=== PATIENT | female | born 1995 | race Caucasian/White ===

== ENCOUNTER 2024-09-26 14:06 | Emergency (ER) | payer OTHER, SELFPAY ==
--- NOTE | 2024-09-26 14:18 | ED_ITS ---
Discharge Plan Disposition Patient Disposition: Home, Self-Care Prescriptions Prescriptions: New vilazodone [Viibryd] 40 mg tablet 40 mg PO DAILY Qty: 20 0RF Rx Instructions: must administer with a meal/food No Action minocycline 100 MG tablet 100 mg PO BID Qty: 20 0RF Referrals Follow up/Referrals: Provider,Referral, [Primary Care Provider, Medical] - See instructions Activity Restrictions/Add. Instructions Additional Instructions/Restrictions: You are seen in the emergency room today with complaints of anxiety and requesting a medication refill. Your medication has been called into [facility]. Please follow-up with your mental health provider which you have scheduled in 2 weeks. Please return to the emergency room should your condition worsen. Clinical Impressions Clinical Impression: Acute anxiety Instructions Patient Instructions: Anxiety Disorders Print Language Print Language: [place] Timore[place] Discharge ED Provider: Mo Castle General Adult HPI <Abiola Carmona APRN - Last Filed: 09/26/24 15:12> General Chief complaint: Psychiatric Symptoms Stated complaint: mental health/medication Time Seen by Provider: 09/26/24 14:11 History of Present Illness HPI narrative: Lynda Tejeda is a 29-year-old female past medical history difficult for depression/mental health issues who presents emergency room today with complaints of anxiety and inquiring about a medication refill. Apparently Ms. Tejeda had seen the same mental health provider for the last 3 years, was prescribed Klonopin and Viibryd, has been on Viibryd 40 mg for 3 years now. Reports that her physician resigned, and a new physician that recently started. States that they pulled her off of her Klonopin and now they will not refill her Viibryd. Patient tells me that she has been very anxious and upset about this over the last couple of weeks. 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 Reported that she last used methamphetamine 2 weeks ago. Patient has an appointment with a new mental health provider in [facility] in 2 weeks, she does not have enough Viibryd to get through to her appointment and is in 2 weeks. Does report that she has been having some anxiety with some mild tachycardia, heart rate in the 100s which she has been keeping track of at home. Denies any chest pain or shortness of breath. No diaphoresis, nausea, vomiting. No prior cardiac history. No family history of sudden cardiac . Denies tobacco use, alcohol use, no recent illicit drug use since using methamphetamine 2 weeks ago. No active or current complaints at this time. Please note that the above description of symptoms, and this electronic medical record under categorization of recalled from ER triage doctor by RN are reflective of an initial nursing assessment, however, is not reflective of my full history and physical exam that was personally taken and clarified. Consequentially, this proceeding description of symptoms, which may include the patient's cauterized chief complaint in the EMR, do not reflect my personal clinical impression, and the ultimate description of the history of present illness stated complaints should be deferred to this section of this note. Unless stated otherwise were congruent with the section of the note, additional signs, symptoms, or incongruence can be interpreted as in or accurate with my clinical impression. Related Data Previous Rx's ?Medication ?Instructions ?Recorded minocycline 100 mg tablet 100 mg PO BID #20 tabs 03/18 vilazodone 40 mg tablet (Viibryd) 40 mg PO DAILY #20 t abs 09/26/24 Allergies Allergy/AdvReac Type Severity Reaction Status Date / Time No Known Allergies Allergy Verified 08/23/18 11:09 [facility] <Abiola Carmona, MARKETING MANAGER - Last Filed: 09/26/24 15:12> [facility] Disclaimer: The information contained in this section may have been updated after the patient was seen, as this information can be updated by other users. Social History Smoking Status: Never smoker alcohol intake: never current occupational status: other Travel in the last 8 weeks?: None Have you lived/traveled outside US in past 30 days?: No Contact w/someone who lives/traveled outside US past 30 days?: No Exposure to someone with infectious disease in past 14 days?: No Do you have a fever (greater than 100.4 F or 38 C)?: No Have you tested positive for COVID-19?: No Exposed to someone with COVID-19 in past 14 days?: No Do you have a sore throat?: No Do you have a cough?: No Do you have any weakness?: No Do you have any diarrhea?: No Are you experiencing any unusual bleeding?: No Do you have any muscle aches/pain?: No Do you have any abdominal pain?: No Are you experiencing loss of taste or smell?: No Other Medical History Have you received the Flu Vaccine for this season: No Have you received the Pneumonia Vaccine: No <Abiola Carmona MARKETING MANAGER - Last Filed: 09/26/24 15:12> ROS Obtained: Yes Systems reviewed as appropriate & no additional complaints except as documented Physical Exam <Abiola Carmona MARKETING MANAGER - Last Filed: 09/26/24 15:12> General General appearance: alert and in no apparent distress Head Head exam: atraumatic and normocephalic Eye Eye exam: Present PERRL and EOMI Chest Chest inspection: Present symmetric chest wall rise Respiratory Respiratory exam: Present normal lung sounds bilaterally Cardiovascular Cardiovascular exam: Present regular rate and normal rhythm Abdominal Exam Abdominal exam: Present soft and normal bowel sounds; Absent tenderness Extremities Exam Extremities exam: Present full ROM Neurological Exam Neurological exam: Present alert and oriented X3 Skin Skin exam: Present warm, dry and intact Medical Decision Making <Abiola Carmona, MARKETING MANAGER - Last Filed: 09/26/24 15:12> Medical Records Screening: Per USPSTF and CDC recommendations, given the prevalence of disease in our region, it is our hospital?s policy to screen for HIV and viral Hepatitis for all patients aged 18 and over and those with ongoing risk factors. Damien Inquiry Pt receiving controlled substance: No Vital Signs: 09/26/24 14:19 09/26/24 15:00 09/26/24 15:17 Temperature 98.1 F 98.1 F Temperature Source Oral Pulse Rate 96 H 94 H Pulse Rate [Left] 104 H Respiratory Rate 16 16 Blood Pressure 127/88 127/88 Blood Pressure [Right Arm] 152/99 H Blood Pressure Mean [Right Arm] 116 Blood Pressure Source [Right Arm] Automatic Cuff Blood Pressure Position [Right Arm] Sitting 02 Sat by Pulse Oximetry 100 100 Oxygen Delivery Method Room Air Room Air Orders (Tests/Meds): ORDERS Category Date Time Status HIV Combo Stat Lab 09/26/24 15:03 Ordered Hepatitis C Ab Qual. W/ RFX Stat Lab 09/26/24 15:03 Ordered ECG Request Stat Y 09/26/24 14:19 Ordered Medical Decision Narrative: In summary patient is an 29-year-old female who presents emergency department for evaluation of refill on her medication Viibryd. Patient recently had to change mental health providers and new mental health provider would not refill her Viibryd. Patient states that she is very upset since she has changed her medication regimen, has stopped her Klonopin, patient reports last time she took Klonopin was a little over a week ago. Requesting a refill on her Viibryd for the next 2 weeks so that she can make it to her new mental health provider appointment and help her continue taking her Viibryd.. Patient is hemodynamically stable upon arrival, afebrile. Unremarkable nonfocal physical exam. Differential diagnosis includes anxiety, depression. Initial workup will be conducted with EKG, patient does report some mild tachycardia over the last couple of weeks with regards to increase in her anxiety about her medication changes. Patient denies any chest pain or shortness of breath.. Initial interventions include calming environment and reassurance. Initial workup reviewed by me EKG reviewed by ER physician, no ST elevation depression noted, normal sinus rhythm. Upon repeat evaluation patient calm down significantly and is going to meat pickler her prescriptions at the pharmacy.. Given this patient appropriate for discharge. I have called and a 2-week prescription for Viibryd at [facility]. Please return to the ER if your condition worsens. Keep your follow-up appointment with your provider in 2 weeks at [facility]. <Mo Castle MD - Last Filed: 09/26/24 15:23> Vital Signs: 09/26/24 14:19 09/26/24 15:00 09/26/24 15:17 Temperature 98.1 F 98.1 F Temperature Source Oral Pulse Rate 96 H 94 H Pulse Rate [Left] 104 H Respiratory Rate 16 16 Blood Pressure 127/88 127/88 Blood Pressure [Right Arm] 152/99 H Blood Pressure Mean [Right Arm] 116 Blood Pressure Source [Right Arm] Automatic Cuff Blood Pressure Position [Right Arm] Sitting 02 Sat by Pulse Oximetry 100 100 Oxygen Delivery Method Room Air Room Air Orders (Tests/Meds): ORDERS Category Date Time Status HIV Combo Stat Lab 09/26/24 15:03 Ordered Hepatitis C Ab Qual. W/ RFX Stat Lab 09/26/24 15:03 Ordered ECG Request Stat Y 09/26/24 14:19 Ordered ECG Data Tracing #1: Independently interpreted by me rate is 81, rhythm is regular, axis is normal, no significant ST elevation in anatomical contiguous leads, QTc 386 Medical Decision Narrative: In summary patient is an 29-year-old female who presents emergency department for evaluation of refill on her medication Viibryd. Patient recently had to change mental health providers and new mental health provider would not refill her Viibryd. Patient states that she is very upset since she has changed her medication regimen, has stopped her Klonopin, patient reports last time she took Klonopin was a little over a week ago. Requesting a refill on her Viibryd for the next 2 weeks so that she can make it to her new mental health provider appointment and help her continue taking her Viibryd.. Patient is hemodynamically stable upon arrival, afebrile. Unremarkable nonfocal physical exam. Differential diagnosis includes anxiety, depression. Initial workup will be conducted with EKG, patient does report some mild tachycardia over the last couple of weeks with regards to increase in her anxiety about her medication changes. Patient denies any chest pain or shortness of breath.. Initial interventions include calming environment and reassurance. Initial workup reviewed by me EKG reviewed by ER physician, no ST elevation dep ression noted, normal sinus rhythm. Upon repeat evaluation patient calm down significantly and is going to meat pickler her prescriptions at the pharmacy.. Given this patient appropriate for discharge. I have called and a 2-week prescription for Viibryd at [facility]. Please return to the ER if your condition worsens. Keep your follow-up appointment with your provider in 2 weeks at [facility]. I was consulted by the DREAD, and we discussed the complexity of the problems being addressed. I approved the treatment and management plan for this patient's care in the emergency department, thus performing a substantive portion of the medical decision making. Mo Castle MD Critical Care <Abiola Carmona, MARKETING MANAGER - Last Filed: 09/26/24 15:12> Critical Care Time Critical Care Time: No
[2024-09-26 14:19] VITALS: BP 152/99; PULSE 104; RESP 16; TEMP 36.7; O2SAT 100; BMI 20.2
[2024-09-26 15:00] VITALS: BP 127/88; PULSE 96; O2SAT 100
--- NOTE | 2024-09-26 15:00 | ECG_ITS ---
APPROVED REPORT Exam: Resting ECG HR:81 bpm ECG Measurements Heart Rate 81 AXES KS 173 P 66 QRSd 75 QRS 77 QT 349 T 61 QTc 386 Conclusion SINUS RHYTHM NORMAL ECG Electronically signed by : ARIAS LACEY, 09/28/2024 12:24:49
[2024-09-26 15:17] VITALS: BP 127/88; PULSE 94; RESP 16; TEMP 36.7; O2SAT 98
== END 2024-09-26 15:19 | disposition home or self-care (01) ==
PROVIDERS: Emergency Provider Emergency Medicine
DX: F41.9 Anxiety disorder, unspecified (principal)
CPT/HCPCS: 93005; 99281

== ENCOUNTER 2024-10-09 02:12 | Emergency (ER) | payer OTHER, SELFPAY ==
--- NOTE | 2024-10-09 02:05 | ECG_ITS ---
APPROVED REPORT Exam: Resting ECG HR:127 bpm ECG Measurements Heart Rate 127 AXES NH 128 P 79 QRSd 80 QRS 82 QT 335 T 50 QTc 410 Conclusion SINUS TACHYCARDIA NONSPECIFIC T-WAVE ABNORMALITY ABNORMAL RHYTHM ECG UNCONFIRMED REPORT Electronically signed by : CINTHIA MCCOLLUM, 10/10/2024 01:08:15
--- NOTE | 2024-10-09 02:18 | ED_ITS ---
Discharge Plan Disposition Patient Disposition: Home, Self-Care Prescriptions Prescriptions: No Action minocycline 100 MG tablet 100 mg PO BID Qty: 20 0RF vilazodone [Viibryd] 40 mg tablet 40 mg PO DAILY Qty: 20 0RF Rx Instructions: must administer with a meal/food Referrals Follow up/Referrals: Provider,Referral, [Primary Care Provider, Medical] - See instructions Activity Restrictions/Add. Instructions Additional Instructions/Restrictions: Please follow-up with your primary care provider. Please return to the emergency department if you develop any new or worsening symptoms or become concerned for your health. Clinical Impressions Clinical Impression: Acute anxiety, Facial numbness, Acute dyspnea Print Language Print Language: Welsh Discharge ED Provider: Giorgi Onofre Adult HPI General Chief complaint: Chest Pain Stated complaint: chest pain Time Seen by Provider: 10/09/24 02:18 History of Present Illness HPI narrative: 29-year-old female with history of meth use presents for multiple complaints. She reports last meth use was earlier today/yesterday. She reports that her face has been numb, she has spots showing up on her legs that are coming and going. She reports that she feels like her heart will not stop beating. Reports pains in her hands that come and go. Related Data Previous Rx's ?Medication ?Instructions ?Recorded minocycline 100 mg tablet 100 mg PO BID #20 tabs 03/18 vilazodone 40 mg tablet (Viibryd) 40 mg PO DAILY #20 t abs 09/26/24 Allergies Allergy/AdvReac Type Severity Reaction Status Date / Time No Known Allergies Allergy Verified 08/23/18 11:09 [facility] Disclaimer: The information contained in this section may have been updated after the patient was seen, as this information can be updated by other users. Social History Smoking Status: Unknown if ever smoked alcohol intake: never current occupational status: other Travel in the last 8 weeks?: None Other Medical History Have you received the Flu Vaccine for this season: No Have you received the Pneumonia Vaccine: No ROS Obtained: Yes All systems reviewed & no additional complaints except as documented Physical Exam General General appearance: alert, anxious and cachectic Head Head exam: atraumatic and normocephalic Eye Eye exam: Present normal appearance, PERRL and EOMI ENT ENT exam: Present normal oropharynx and normal external ear exam Neck Neck exam: Present normal inspection and full ROM Chest Chest inspection: Present normal inspection and symmetric chest wall rise; Absent tenderness Respiratory Respiratory exam: Present normal lung sounds bilaterally; Absent respiratory distress Cardiovascular Cardiovascular exam: Present normal rhythm and tachycardia Abdominal Exam Abdominal exam: Present soft; Absent distention, tenderness or guarding Extremities Exam Extremities exam: Present normal inspection; Absent edema or joint swelling Back Exam Back exam: Present normal inspection; Absent tenderness Neurological Exam Neurological exam: Present alert and oriented X3; Absent motor sensory deficit Psychiatric Psychiatric exam: Present normal affect and normal mood Skin Skin exam: Present warm, dry and normal color Lymphatic Lymphatic Findings: no adenopathy Medical Decision Making Medical Records Medical records reviewed: Yes I reviewed the patient's medical records. Screening: Per USPSTF and CDC recommendations, given the prevalence of disease in our region, it is our hospital?s policy to screen for HIV and viral Hepatitis for all patients aged 18 and over and those with ongoing risk factors. Damien Inquiry Pt receiving controlled substance: No Damien was queried for this patient: No Vital Signs: 10/09/24 02:30 10/09/24 02:33 10/09/24 02:37 Temperature 98.1 F Temperature Source Temporal Artery Scan Pulse Rate 109 H 128 H Pulse Rate [Right] 126 H Respiratory Rate 20 24 13 Blood Pressure 143/111 H 139/91 H Blood Pressure [Right Arm] 139/91 H Blood Pressure Mean [Right Arm] 107 02 Sat by Pulse Oximetry 100 100 97 Oxygen Delivery Method Room Air 10/09/24 03:00 Temperature Temperature Source Pulse Rate 116 H Pulse Rate [Right] Respiratory Rate 13 Blood Pressure 126/79 Blood Pressure [Right Arm] Blood Pressure Mean [Right Arm] 02 Sat by Pulse Oximetry 100 Oxygen Delivery Method Lab Data Lab results reviewed: Yes I reviewed the patient's lab results. Lab Results 10/09/24 02:15: WBC 10.8, RBC 4.34, Hgb 12.8, Hct 36.8 L, MCV 84.8, MCH 29.5, MCHC 34.8, RDW 13.6, Plt Count 431 H, MPV 9.5, Neut % (Auto) 70.4, Lymph % (Auto) 21.0, Mobile % (Auto) 7.8, Eos % (Auto) 0.0 L, Baso % (Auto) 0.5, Neut # (Auto) 7.6, Lymph # (Auto) 2.3, Mobile # (Auto) 0.8, Eos # (Auto) 0.0, Baso # (Auto) 0.1, D-Dimer 0.42, Sodium 136, Potassium 3.8, Chloride 100, Carbon Dioxide 20 L, Anion Gap 19.8 H, BUN 16, Creatinine 1.20 H, Estimated Creat Clear 60, Estimated GFR 53 L, Est GFR ( Amer) 64, Glucose 123 H, Calcium 10.3 H , Magnesium 1.8, Total Bilirubin 1.2, AST 26, ALT 17, Alkaline Phosphatase 103, Troponin I < 0.01, Total Protein 9.2 H, Albumin 5.3 H, Globulin 3.9 H, Albumin/Globulin Ratio 1.4 10/09/24 02:30: HCV Ab LISA w/Rflx PCR Qn Negative, HIV Ag/Ab Combo Qual Negative 10/09/24 02:15 10/09/24 02:15 Orders (Tests/Meds): ED MEDICATIONS Discontinued Medications Generic Name Dose Route Start Last Admin Trade Name Freq PRN Reason Stop Dose Admin Acetaminophen 1,000 mg 10/09/24 03:07 10/09/24 03:12 Acetaminophen 500mg Tab PO 10/09/24 03:08 1,000 mg ONCE ONE Administration Sodium Chloride 1,000 mls @ 999 mls/hr 10/09/24 02:30 10/09/24 02:38 Sod Chlor 0.9% 1000ml Bag IV 10/09/24 03:30 999 mls/hr .Q1H1M KRISTY Administration Ketorolac Tromethamine 30 mg 10/09/24 03:07 10/09/24 03:12 Ketorolac 30mg/Ml Vial IV 10/09/24 03:08 30 mg ONCE ONE Administration ORDERS Category Date Time Status CXR --portable [XR chest portable] Stat Exams 10/09/24 02:30 Completed CBC w/Auto Diff [Complete Blood Count Auto Diff] Stat Lab 10/09/24 02:15 Completed CMP [Comprehensive Metabolic Panel] Stat Lab 10/09/24 02:15 Completed D-Dimer Stat Lab 10/09/24 02:15 Completed HIV Combo Stat Lab 10/09/24 02:30 Completed Hepatitis C Ab Qual. W/ RFX Stat Lab 10/09/24 02:30 Completed Magnesium Stat Lab 10/09/24 02:15 Completed Troponin I Q3H Lab 10/09/24 02:15 Completed Troponin I Q3H Lab 10/09/24 05:45 Ordered ECG Data Tracing #1: I reviewed this ECG and interpreted as documented below: Sinus tachycardia rate of 127, no significant ST changes, no evidence of arrhythmia ECG initial impression date: 10/09/24 ECG initial impression time: 02:05 HEART Score History (anamnesis): Slightly suspicious ECG: Normal Age: <45 years Risk factors: No known risk factors Troponin: </= normal limit HEART Score: 0 Medical Decision Narrative: 29-year-old female with history of meth and marijuana abuse, used earlier today, presents for multiple complaints including facial numbness, palpitations, shortness of breath, visual disturbances (she is seeing black spots on her legs that are not there). History was obtained via interactive discussion with patient, family, chart review. On arrival, patient is afebrile, tachycardic, satting appropriately on room air, alert and oriented, moving all extremities spontaneously. Full physical exam performed and significant for thin appearing patient, poor dentition, no other significant physical exam abnormality Differential includes but is not limited to side effect of meth use, PE, electrolyte derangement, arrhythmia, pneumothorax, pneumonia,. Patient was given Tylenol, Toradol, fluid bolus for symptomatic management and correction of underlying abnormalities. Workup initiated including CBC CMP troponin D-dimer chest x-ray. Patient reports prior to ligation, does not require test.. On re-evaluation, patient anxious. Laboratory workup independently interpreted by me and significant for negative D-dimer, negative troponin, no significant leukocytosis.. Imaging independently interpreted by me and significant for clear lungs bilaterally without focal opacity. See radiology read for full review of final results. EKG independently interpreted by me and significant for sinus tachycardia. Repeat troponin was considered, but deemed unnecessary due to no significant concern for ACS.. Given patient history, exam and workup, patient's presentation most likely represents meth use with associated tachycardia and mild psychosis. Patient is not a threat to herself or others and has no significant emergent pathology on ER workup. She was discharged in stable condition with her significant other. Encouraged follow-up with PCP. Procedures Risk/Benefits of Procedure(s) Were Explained: Yes Critical Care Critical Care Time Critical Care Time: No
--- OUTSIDE RECORDS SUMMARY | 2024-10-09 02:18 | XMS_ITS | Clinical Summary ---
Author Organization [facility] Address [address] [place] [address] Phone Care Team Providers Care Radio Interference Expert Name Role Phone Zachary LIZARRAGA, Sabrina Primary Care Physician [ ] Conditions or Problems Problem Name Problem Code Onset Date Status Entry Date Provider Comment Standard Description Annotate CONTRACEPTIVE MGMT Z30.40 (ICD-10-CM ) 08/20 Active 08/20 Sabrina Sharma MD Encounter for surveillance of contraceptive s, unspecified DYSURIA 23297326 (SNOMED CT) 08/20 Active 08/20 Natali Washington MA Dysuria ROUTINE FOLLOW-UP [id number] (SNOMED CT) 07/25 Inactive 07/25 Georgette Mujica LPN visit Medications Medication Instructions Start Date Stop Date Generic Name [facility] Provider SPRINTEC 28 0.25-35 MG-MCG TABS Take 1 daily NORGESTIMATE-E TH ESTRADIOL [id number] Sabrina Sharma MD BACTRIM DS 800-160 MG TABS one po BID SULFAMETHOXAZO LE-TRIMETHOPRI M [id number] Sabrina Sharma MD Medications Administered No information available. Allergies, Adverse Reactions, Alerts Allergy Name Reaction Description Start Date Severity Statu s Provider PRILOSEC Critical Active Georgette Cross urrens MANAGER SOCIAL SERVICES CECLOR Critical Active Georgette C urrens MANAGER SOCIAL SERVICES AMOXIL Critical Active Georgette Cross urrens MANAGER SOCIAL SERVICES Results Date Name Value Unit Range Flag Description Office Visit: [facility]-/deliv ered 07/08/2012-[facility]- RM# 3 WET MOUNT Negative microbial wet smear GLUCOSE, URN negative Glucose [Mass/volume] in Urine by Test strip BILIRUBIN UR negative Bilirub in.total [Presence] in Urine by Test strip BLOOD UR DIP negative blood i n urine (hemoglobin) by dipstick NITRITE URN negative Nitrite [Presence] in Urine by Test strip WBC DIPSTK U negative Leukocy te esterase [Presence] in Urine by Test strip KETONES URN trace (5) Ketones [Mass/volume] in Urine by Test strip SPEC GR URIN 1.025 Specific gravity of Urine by Test strip PH URINE 6.5 pH of Urine by Test strip PROTEIN, URN 1+ protein, urine, semiquantitative (dipstick) UROBILINOGEN 0.2 Urobilin ogen [Presence] in Urine by Test strip HGB 15.0 g/dL Hemoglobin [Mass/volume] in Blood Lab Report: CHLAMYDIA/N. SLAVA ORRHOEAE DNA, SDA GC DNA PROBE NOT DETECTED NOT DETECT N Neisseria gonorrhoeae DNA [Presence] in Anorectal by JESSICA with probe detection Plan of Care Type Date Detail Pending order Pap Age age =< 2 0 (Out Order) Pending order [facility] (Out O rder) Pending order Hemoglobin 24640 Pending order Urine Dip Auto 8 1003 Pending order Slides - Smears 40652 Pending order Pap Age age =< 2 0 (Out Order) Pending Order exclud ed from report: Procedures Code Procedure Name Date Entry Date CPT-52816 Hemoglobin 63186 CPT-09691 Urine Dip Auto 35205 CPT-46560 Slides - Smears 30650 08/20 CPT-72949 [facility] (Out Order) 08/20 90205 [facility] Test # Pap Age age =< 20 (Out Order) 08/20 Vital Signs Date Name Value Unit Description BP Diastolic 99 mm[Hg] blood pressu re, diastolic BP Systolic 134 mm[Hg] blood pressur e, systolic Heart Rate 93 /min pulse rate Weight Measured 144.7 [lb_av] weight E& M Weight Measured 144.7 [lb_av] weight E& M Weight Measured 65.77 kg weight in kilograms E&M Immunizations No information available. Advance Directives No information available.
--- OUTSIDE RECORDS SUMMARY | 2024-10-09 02:18 | XMS_ITS | Clinical Summary ---
Author Organization Healthcare Address [address] [place] [address] Care Team Providers Care Plant Tech Name Role Phone Unavailable Primary Care Provider Unavailabl e Family History Medical History Relation Name Comments COPD Brother 1 Diabetes type I Brother 2 Asthma Father COPD Father Emphysema Father Esophageal cancer Maternal Grandfather Anemia Mother JENNIFER disease Mother Diabetes type II Paternal Grandmother Relation Name Status Comments Brother 1 Brother 2 Father Maternal Grandfather Mother Paternal Grandmother Social History Tobacco Use Types Packs/Day Years Used Date Smoking Tobacco: Never Alcohol Use Standard Drinks/Week Comments No 0 (1 standard drink = 0.6 oz pur e alcohol) Comments Unknown Sex and Gender Information Value Date Recorded Sex Assigned at Female 03/31/2021 4:40 AM EST Legal Sex Female 6:50 PM EDT Gender Identity Female 03/31/2021 4:40 AM EST Sexual Orientation Straight 03/31/2021 4: 40 AM EST Last Filed Vital Signs Vital Sign Reading Time Taken Comments Blood Pressure - - Pulse - - Temperature - - Respiratory Rate - - Oxygen Saturation - - Inhaled Oxygen Concentration - - Weight 71.3 kg (157 lb 3 oz) 12/29/2014 10:45 AM EDT Height 165.1 cm (5' 5 ) 12/29/2014 10:45 AM EDT Body Mass Index 26.16 12/29/2014 10:45 AM EDT Plan of Treatment Not on file
--- OUTSIDE RECORDS SUMMARY | 2024-10-09 02:18 | XMS_ITS | Clinical Summary ---
Author Organization [facility] Address [address] [facility] [place] [address] Phone Care Team Providers Care Review Consultant Name Role Phone Unavailable Primary Care Provider Unavailabl e Allergies Active Allergy Reactions Criticality Noted Date Comments Amoxicillin Rash 07/11/2012 Cefaclor Hives 07/11/2012 Omeprazole Magnesium Other (See Comments) 07/11 Numbness, dizziness Medications montelukast (SINGULAIR) 10 mg tablet Take by mouth every evening. Active ibuprofen (ADVIL;MOTRIN) 800 mg Take 800 mg by mouth 3 times daily. Active FERROUS SULFATE ORAL Take 325 mg by mouth 2 times daily. Active docusate sodium (COLACE) 100 mg capsule Take by mouth 2 times daily. Active Active Problems No known active problems Resolved Problems Problem Noted Date Diagnosed Date Resolved Date Endometritis following delivery 07/11/2012 07/12/2012 Social History Tobacco Use Types Packs/Day Years Used Date Smoking Tobacco: Never Alcohol Use Standard Drinks/Week Comments No 0 (1 standard drink = 0.6 oz pur e alcohol) Sexually Active Control Partners Comments Not Currently Comments No Sex and Gender Information Value Date Recorded Sex Assigned at Not on file Legal Sex Female 5:11 AM EDT Gender Identity Not on file Sexual Orientation Not on file Obstetrics History Last Filed Vital Signs Vital Sign Reading Time Taken Comments Blood Pressure 119/69 07/12/2012 7:14 AM EDT Pulse 75 07/12/2012 7:14 AM EDT Temperature 36.6 C (97.9 F) 07/12/2012 7:14 AM EDT Respiratory Rate 16 07/12/2012 7:14 AM EDT Oxygen Saturation 98% 07/12/2012 7:14 AM EDT Inhaled Oxygen Concentration - - Weight - - Height 166.4 cm (5' 5.5 ) 07/11/2012 4:12 AM EDT Body Mass Index - - Plan of Treatment Health Maintenance Due Date Last Done Comments Annual Wellness Exam 1997 DTaP/TDaP/Td (1 - Tdap) 2013 Hepatitis B Vaccine (1 of 3 - 19+ 3-dose series) 2013 Cervical Cancer Screening 07/01/2015 Pap Smear 07/01/2015 COVID-19 Vaccine ( - 2023-2 5 season) 2023 HPV/Pap Cotest 2024 Influenza Vaccine (Season Ended) 2024 Meningococcal B Vaccine Aged Out No l onger eligible based on patient's age to complete this topic Pneumococcal Vaccine 0-49 Aged Out No longer eligible based on patient's age to complete this topic Insurance [address] Advance Directives For more information, please contact: [phone] * Full Code (Latest Code Status on File) Date Activated Date Inactivated Comments 07/11/2012 7:54 AM 07/12/2012 2:37 PM
--- OUTSIDE RECORDS SUMMARY | 2024-10-09 02:19 | XMS_ITS | Data Portability ---
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 Plan of Treatment Reminders Order Date Submit Date Provider Last Modified By Organization Details Last Modified Time Details Appointments Mental Health Initial 40 2024 01:00P M Shayla Kim MD Not available Not available Not available Mental Health FU after Initial 2024 02:00P M SHERIDAN Lopez Not available Not available Not available Lab drug screen, 14 drugs (detect imed), urine 2024 025 VALERIO [facility], [address], [facility], [place], [address], 08/11/2024 18:35:39 Referral psychia trist referra l - PTSD, anxiety - chronic anxiety 2024 025 [email or web address] Shayla Kim MD, 1 [facility], [place], [address], 09/05/2024 14:52:34 mental health counselor manager or referra l 2024 025 [email or web address] [facility], [facility], [place], [address], 08/06/2024 08:27:06 Procedures None recorde d. Surgeries None recorde d. Imaging None recorde d. Medication Orders clonaze sergey 0.5 mg tablet [address], [address], 08/06/2024 17:15:50 zolpide m 10 mg tablet [address], [address], 07/12/2024 16:28:19 clonaze sergey 0.5 mg tablet [address], [place], [address], 07/12/2024 16:28:19 clonaze sergey 0.5 mg tablet [address], [address], 06/20/2024 14:10:39 clonaze sergey 0.5 mg tablet [address], [address], 06/07/2024 10:30:05 clonaze sergey 0.5 mg tablet [address], [address], 05/24/2024 13:55:17 Patient TargetsNo targets recorded. Patient Instructions Encounter Date Encounter Id Patient Instructions Last Modified By Organization Details Last Modified Time 08/06/2024 [id number] smoking cessatio n counseling, greater than 3 minutes up to 10 minutes* Not available 08/06/2024 16:50:57 Long discussion held with patient regarding psychiatry referral Explained need to stop / abstain from THC usage - verbalized understanding UDS obtained CSA reviewed and signed PDMR reviewed -appropriate Discussed with patient the long-term effects of chronic benzodiazepam usage including but not limited to: impairment in motor coordination, psychomotor speed, verbal reasoning and learning, executive function, sensory processing, episodic memory and concentration. Can lead to impaired thinking, memory loss, anxiety and depression, irritability, paranoia, aggression, personality changes Discussed with pt that if she elects to not follow through with psychiatry - would begin benzo taper. Verbalized understanding Advised to take medication as directed [email or web address] Not available 08/06/2024 17:40:04 Reason for Referral Mental Health Counselor Refe rral for Mixed anxiety and depressive disorder Referring Physician: Bc Gonzalez, [facility], Encounter Date: 07/12/2024 Psychiatrist Referral for Ch ronic anxiety PTSD, anxiety - chronic anxiety Referring Physician: Enid Bee, [facility], Encounter Date: 08/06/2024 Results Created Date Observation Date Name Description Value Unit Range Abnormal Flag Note LastModifiedBy Organization Detail LastModifiedTime 08/07/19 25 08/11/2024 COMPL IANCE DRUG YESENIA SIS, UR summary report (summary) FINAL ===== ===== ===== ===== ===== ===== ===== ===== ===== ===== ===== ===== ===== === TOXAS SURE COMP DRUG YESENIA SIS,U R ===== ===== ===== ===== ===== ===== ===== ===== ===== ===== ===== ===== ===== === Test Resul t Flag Units Drug Prese nt Metha mphet amine 980 ng/mg creat Amphe tamin e 597 ng/mg creat Sourc es of metha mphet amine inclu de illic it sourc es, as a sched uled presc ripti on medic ation , as a metab olite of some presc ripti on drugs , or use of an l-met hamph etami ne inhal er. Amphe tamin e is an expec gabriel metab olite of metha mphet amine . Amphe tamin e is also avail able as a sched ule II presc ripti on drug. 7-ami noclo nazep am 382 ng/mg creat 7-ami noclo nazep am is an expec gabriel metab olite of clona zepam . Sourc e of clona zepam is a sched uled presc ripti on medic ation . Carbo xy-TH C 1118 ng/mg creat Carbo xy-TH C is a metab olite of tetra hydro canna binol (THC) . Sourc e of THC is most commo nly herba l marij uana or marij uana- based produ cts, but THC is also prese nt in a sched uled presc ripti on medic ation . Trace amoun ts of THC can be prese nt in hemp and canna bidio l (CBD) produ cts. This test is not inten ded to disti nguis h betwe en delta -9-te trahy droca nnabi nol, the predo minan t form of THC in most herba l or marij uana- based produ cts, and delta -8-te trahy droca nnabi nol. Cyclo benza ron PRESE NT Desme thylc yclob enzap rine PRESE NT Desme thylc yclob enzap rine is an expec gabriel metab olite of cyclo benza ron . Zolpi dem Acid PRESE NT Zolpi dem acid is an expec gabriel metab olite of zolpi dem. Vilaz odone PRESE NT ===== ===== ===== ===== ===== ===== ===== ===== ===== ===== ===== ===== ===== === Test Resul t Flag Units Ref Range Creat inine 60 mg/dL >=20 ===== ===== ===== ===== ===== ===== ===== ===== ===== ===== ===== ===== ===== === Decla red Medic ation s: Medic ation list was not provi ded. ===== ===== ===== ===== ===== ===== ===== ===== ===== ===== ===== ===== ===== === For clini suzi consu ltati on, pleas e call . ===== ===== ===== ===== ===== ===== ===== ===== ===== ===== ===== ===== ===== === Not Available [facility] ([facility]) [address] [facility], [place], [address], 08/11/2024 18:35:39 08/07/1908/11/2024 COMPL IANCE DRUG YESENIA SIS, UR pdf . Not Available [facility] ([facility]) [address] [facility], [place], [address], 08/11/2024 18:35:39 Result Notes None recorded. Problems Name Problem SNOMED Code Status Onset Date Resolution Date Notes Provider Name and Address Organization Details Recorded Time High risk pregnanc y 95241880 Completed 201605/10/2017 Yanci Padilla katharine, [place] - [facility] 8 14:15:23 Active or passive immuniza tion Completed Declined Flu vaccine TDAP given Katie Brayalma rosa alcantar [place] - [facility] 8 15:45:56 Antenata l screenin g Completed Us per [place] Vtx presenta tion, SOPHIE WNL, Growth @ 51% Limited anatomy but all see appears NL. Further scans @ your discreti on. 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 424773944 Active 2017 Cathy Navas, [facility] [address], [place], [address] , [place] - [facility] 2 11:04:40 Urinary tract infectio us disease 21614224 Completed 201805/27/2019 Kiki Reyna, [facility] [address], [place], [address] , [place] - [facility] 0 15:27:01 Anxiety 75696462 Active 2019 Cathy Navas, [facility] [address], [place], [address] , [place] - [facility] 2 11:04:37 Pregnanc y 65781892 Completed 202001/06/2021 [facility] [address], [place], [address] , [place] - [facility] 1 11:55:06 Antenata l screenin g Completed [x}CF- Declined [x] FTS/Mate [id number] egative [x] AFP normal [facility] [address], [place], [address] , [place] - [facility] 1 11:54:46 Active immuniza tion Completed [x] Flu Vaccine- Declined [x] TDAP @ 30 wks 11/11/20 [facility] [address], [place], [address] , [place] - [facility] 1 11:54:47 Overweig ht 754984697 Completed BMI 25.9 [x] A1C-%.5% [facility] [address], [place], [address] , [place] - [facility] 1 11:54:46 Mixed anxiety and depressi ve disorder 937203412 Completed Celexa 40mg [facility] [address], [place], [address] , [place] - [facility] 1 11:54:46 Contrace ption care manageme nt Completed [facility] [address], [place], [address] , [facility] - [facility] 1 11:54:46 Abnormal cervical Papanico laou smear 253911649 Completed Hx of HGSIL/LG SOCORRO Pap [x ] Pap with OBPE-ASC US-HPV Negative Rpt pap PP [facility] Martine Sanders , [place], [address] , [facility] - [facility] 1 11:54:46 Overweig ht 404536111 Active BMI 25.9 [x] A1C-%.5% Cathy NavasMARINA [address], [place], [address] , [facility] - [facility] 2 11:04:49 Mixed anxiety and depressi ve disorder 778234886 Active Celexa 40mg Cathy NavasMARINA [address], [place], [address] , [facility] - [facility] 2 11:04:47 Recreati onal drug user 421446015 Completed UDS positive THC She stopped 07/22/20- Advised to quit [facility] Martine Sanders [address] [place] [address], [address] , [facility] - [facility] 1 11:54:46 Blood group A Rh(D) negative 756716996 Completed Blood Type A weak D. Rhogam given 11/11/20 [x] antibody screen negative [facility] [address], [place], [address] , [facility] - [facility] 1 11:54:46 Glucose toleranc e test outside referenc e range 751937181 Completed 202010/27/2021 3hr gtt 11/20/20 WNL Gracia Tana [facility] 2 10:33:49 Glucose toleranc e test outside referenc e range 216101382 Completed 2020 3hr gtt 11/20/20 WNL [facility] [address], [address] , [facility] - [facility] 1 11:54:47 Vitamin deficien cy 35684287 Active 2021 Cathy NavasMARINA [address], [place], [address] , [facility] - [facility] 2 11:04:56 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 Cathy Navas, [facility], [place], [place], [address] , [place] - [facility] 2 11:04:44 Body mass index 25-29 - overweig 713045950 Active 2021 Cathy Navas, [facility], [place], [address] , [place] - [facility] 2 11:13:20 Depressi ve disorder 33226847 Active 2021 Pennie Cody null, [place] - [facility] 2 14:23:00 Insomnia 749657773 Active 2022 Luke Blanca null, [place] - [facility] 3 08:35:32 Depressi ve disorder 73077809 Completed 201505/10/2017 Pennie Cody null, [place] - [facility] 2 14:23:00 Lower urinary tract infectio us disease 6292918 Active 2023 Ulises Clifton MD [address], [place], [address] , [place] - [facility] 4 14:24:37 Chronic constipa tion 125239697 Active 2023 Ulises Clifton MD [address], [place], [address] , [place] - [facility] 4 14:25:16 Chronic anxiety 634099697 Active 2024 Enid Bee, [facility], [place], [address] , [place] - [facility] 5 17:02:51 Anxiety 34494199 Completed 201505/27/2019 was on paxil 60mg daily and stopped with +UPT-ct Cathy Navas, [facility] [address], [place], [address] , [place] - [facility] 2 11:04:37 Normal pregnanc y 01386721 Completed 201601/19/2017 Ashley Dick null, [place] - [facility] 7 13:47:33 Pregnanc y 05329022 Completed 201605/10/2017 [facility] [address], [place], [address] , [place] - [facility] 1 11:55:06 Problem Notes None recorded. Procedures Surgical History Date Name Laterality Status Provider Name and Address Organization Details Recorded Time 04/13 Date of Last Pap Smear completed Jason Lezama [place] - [facility] 3 16:53:25 02/03 SALPINGECTOMY, LAPAROSCOPIC (SURG) completed Emelina Hyman DO [address], [place], [address], [place] - [facility] 1 11:34:45 09/11 OB Ultrasound Summary completed Shanondivina Roderick [place] - [facility] 1 13:05:47 07/06 OB Ultrasound Summary completed Maria E Vaughn [place] - [facility] 1 13:15:55 01/27 Nexplanon Removal completed Kiki Reyna APRN [address], [place], [place], [address], [place] - [facility] 0 14:48:50 08/15 diagnostic laparoscopy completed Tera Dickey [place] - [facility] 9 13:44:00 04/26 Colposcopy completed Kiki Reyna APRN [address], [place], [address], [place] [facility] 8 10:45:00 04/26 Colposcopy completed Kiki Reyna APRN [address], [place], [address], [place] [facility] 0 15:29:00 04/26 colposcopy completed Kiki Reyna APRN [address], [place], [address], [place] [facility] 9 12:55:26 04/12 Nexplanon Insertion completed Emily Ford [place] - [facility] 8 09:29:40 04/12 implantation of subcutaneous contraceptive completed Kiki Reyna APRN [address], [place], [address], [place] [facility] 0 15:33:12 02/28 Oral surgery procedure completed Emily Ford [facility] 8 13:06:03 07/11 Dilation and Curettage, sharp completed Emily Ford [facility] 7 12:53:16 esophagogastroduodenoscopy completed Batsheva Rangel [facility] 9 10:44:39 Imaging Results None recorded. Procedure Notes None recorded. Medical Equipment None Reported. Allergies Allergen ID Allergen Name Allergen Category Reaction Reaction Severity Criticality Documentation Date Start Date Code Code System Note Provider Name and Address Organization Details Recorded Time 23312 Prilosec medicatio n Not available Not available Not available 02/05/2016201134 5 RxNorm Dizzy , numb [facility] [address], [place], [address], [facility] 8 09:22:21 79635 Product containin g penicilli n (product) medicatio n rash Not available Not available 02/05/20162007 09243 8001 SNOMED [facility] [address], [place], [address], [facility] 8 09:22:16 23201 Ceclor medicatio n rash Not available Not available 02/05/2016200763 5 RxNorm [facility] [address], [place], [address], [facility] 8 09:22:12 Medications Name Sig Start Date Stop Date Status Note LastModified by Organization Details LastModified Time Singulair 10 mg tablet take 1 tablet (10 mg) by oral route once daily in the evening 02/19 completed Singulai r 10 mg oral tablet;R ecorded Status: Recorded on: 04/14/20 11 11:51AM; Disconti nued Status: Disconti nued on: 02/20/20 12 3:19PM;U ser: blumc;Es t. Completi on: 08/12/19 12 Not Available Not Available Not Available cyclobenz aprine 10 mg tablet TAKE 1 TABLET BY MOUTH TWICE DAILY 01/25 completed Not Available Not Available Not Available terconazo le 0.4 % vaginal cream INSERT ONE (1) APPLICAT ORFUL EVERY DAY BY VAGINAL ROUTE DIRECTED FOR 7 DAYS. 12/23 completed Not Available Not Available Not Available diclofena c 3 % topical gel APPLY TO LESION AREAS BY TOPICAL ROUTE TWO (2) TIMES PER DAY 07/13 completed Not Available Not Available Not Available clindamyc in HCl 300 mg capsule TAKE ONE (1) CAPSULE EVERY SIX (6) HOURS BY ORAL ROUTE FOR 7 DAYS. 09/14 completed Not Available Not Available Not Available citalopra m 40 mg tablet Take 1 tablet every day by oral route for 30 days. 11/08 completed Not Available Not Available Not Available trazodone 50 mg tablet 04/18 completed Not Available Not Available Not Available cetirizin e 10 mg tablet take 1 tablet (10 mg) by oral route once daily 01/10 completed switched to levoceti rizine Not Available Not Available Not Available azithromy los 250 mg tablet take 2 tablets (500 mg) by oral route once daily for 3 days 05/27 completed Not Available Not Available Not Available ibuprofen 800 mg tablet TAKE ONE (1) TABLET BY MOUTH EVERY SIX (6) HOURS NEEDED 08/06 completed Not Available Not Available Not Available citalopra m 10 mg tablet Take 1 tablet every day by oral route for 30 days. 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 NO DRIVING FOR AT LEAST SIX (6) HOURS AFTER LAST DOSE. 07/15 completed Not Available Not Available Not Available Keflex 500 mg capsule take 1 capsule (500 mg) by oral route every 12 hours for 7 days 03/02 completed Keflex 500 mg oral capsule; comment: pt is ;Recorde d Status: Recorded on: 02/21/20 12 3:31PM;D iscontin ued Status: Disconti nued on: 03/02/20 12 3:50PM;U ser: vesth;Es t. Completi on: 02/28/20 12;Print ed: 02/21/20 12 Not Available Not Available Not Available ondansetr on HCl 8 mg tablet 07/13 completed Not Available Not Available Not Available promethaz ine 12.5 mg tablet TAKE ONE (1) TABLET FOUR (4) TIMES A DAY BY ORAL ROUTE NEEDED. 01/25 completed Not Available Not Available Not Available phenazopy ridine 200 mg tablet TAKE ONE (1) TABLET TWICE A DAY BY ORAL ROUTE FOR FOUR (4) DAYS. 04/17 completed Not Available Not Available Not Available Paxil 20 mg tablet Take by oral route. 11/28 completed Not Available Not Available Not Available ondansetr on HCl 4 mg tablet 04/18 completed Not Available Not Available Not Available clonazepa m 0.5 mg tablet TAKE ONE (1) TABLET THREE (3) TIMES A DAY BY ORAL ROUTE AFTER MEAL(S) FOR 30 DAYS. active Not Available Not Available No t Available Prilosec 20 mg capsule,d elayed release take 1 capsule (20 mg) by oral route once daily before a meal for 30 days 04/18 completed Prilosec 20 mg oral capsule, delayed release( /EC);R ecorded Status: Recorded on: 04/14/20 11 11:50AM; Disconti nued Status: Disconti nued on: 04/18/20 11 10:24AM; User: Ifrah Ortiz on: 05/14/19 12 Not Available Not Available Not Available Ferrex 150 mg iron capsule TAKE ONE (1) CAPSULE EVERY DAY BY ORAL ROUTE FOR 30 DAYS. 10/14 completed Not Available Not Available Not Available clindamyc in HCl 150 mg capsule TAKE ONE (1) CAPSULE BY MOUTH THREE TIMES A DAY; TAKE UNTIL PRESCRIP TION IS GONE 07/04 completed Not Available Not Available Not Available hydroxyzi ne pamoate 50 mg capsule 05/20 completed Not Available Not Available Not Available potassium chloride ER 10 mEq tablet,ex tended release TAKE ONE (1) TABLET EVERY DAY BY ORAL ROUTE. 01/25 completed Not Available Not Available Not Available metronida zole 500 mg tablet Take 1 tablet twice a day by oral route with meals for 7 days. 11/28 completed Not Available Not Available Not Available Tamiflu 75 mg capsule Take 1 capsule twice a day by oral route for 5 days. 08/05 completed Not Available Not Available Not Available sulfameth oxazole 800 mg-trimet hoprim 160 mg tablet TAKE ONE (1) TABLET EVERY 12 HOURS BY ORAL ROUTE FOR FIVE (5) DAYS. 12/10 completed Not Available Not Available Not Available doxycycli ne monohydra te 100 mg tablet take 1 tablet (100 mg) by oral route 2 times per day for 10 days 02/20 completed doxycycl ine monohydr ate 100 mg oral tablet;R ecorded Status: Recorded on: 02/20/20 12 4:02PM;D iscontin ued Status: Disconti nued on: 02/21/20 12 3:31PM;U ser: vanessa;Es t. Completi on: 03/01/20 12 Not Available Not Available Not Available acetamino phen 500 mg tablet take 2 tablets (1,000 mg) by oral route every 4-6 hours as needed not to exceed 8 tablets per 24hrs 05/07 completed acetamin ophen 500 mg oral tablet;R ecorded Status: Recorded on: 04/06/20 12 1:36PM;D iscontin ued Status: Disconti nued on: 05/07/19 13 10:46AM; User: jovan Not Available Not Available Not Available ondansetr on 8 mg disintegr ating tablet PLACE ONE (1) TABLET THREE (3) TIMES A DAY BY TRANSLIN GUAL ROUTE NEEDED FOR FIVE (5) DAYS. 10/11 completed Not Available Not Available Not Available Zantac 150 mg tablet take 1 tablet (150 mg) by oral route 2 times per day 08/28 completed Zantac 150 mg oral tablet;R ecorded Status: Recorded on: 03/02/20 15 4:20PM;U ser: bess ;Est. Completi on: 08/29/19 16;Print ed: 03/02/20 15 Not Available Not Available Not Available acetamino phen ER 650 mg tablet,ex tended release 04/18 completed Not Available Not Available Not Available Aleve 220 mg tablet take 1 tablet (220 mg) by oral route every 8 hours as needed 07/10 completed Aleve 220 mg oral tablet;P rescribe Status: Prescrib ed on: 01/29/20 14 3:55PM;D iscontin ued Status: Disconti nued on: 07/11/19 15 4:03PM;U ser: grayn;Es t. Completi on: 03/29/20 14;Indic ation: Pain - (16.7809 00);Phar macyVeri fied: 01/29/20 14 3:55PM Not Available Not Available Not Available Vitamin tablet Take 1 tablet every day by oral route at bedtime for 30 days. 04/12 completed Not Available Not Available Not Available oxycodone -acetamin ophen 5 mg-325 mg tablet 03/27 completed Not Available Not Available Not Available amoxicill in 875 mg tablet take 1 tablet (875 mg) by oral route every 12 hours for 10 days 10/19 completed amoxicil chris 875 mg oral tablet;R ecorded Status: Recorded on: 10/20/19 10 9:48AM;D iscontin ued Status: Disconti nued on: 10/20/19 10 9:49AM;U ser: [email or web address]; Est. Completi on: 10/30/19 10;Print ed: 10/20/19 10 Not Available Not Available Not Available citalopra m 20 mg tablet TAKE ONE (1) TABLET EVERY DAY BY ORAL ROUTE FOR 30 DAYS. 12/10 completed Not Available Not Available Not Available Metrogel Vaginal 0.75 % (37.5 mg/5 gram) insert 1 applicat orful (37.5 mg) by vaginal route once daily at bedtime for 7 days 06/18 completed Metrogel Vaginal 0.75 % vaginal gel;Jose rded Status: Recorded on: 06/08/19 13 4:12PM;D iscontin ued Status: Disconti nued on: 06/18/19 13 9:47AM;U ser: alber; Est. Completi on: 06/09/19 13;Indic ation: Bacteria l Vaginosi s - (10.6169 00) Not Available Not Available Not Available famotidin e 20 mg tablet TAKE ONE (1) TABLET TWICE A DAY BY ORAL ROUTE DIRECTED FOR 30 DAYS. 01/25 completed Not Available Not Available Not Available Blood Glucose Monitor System kit use as directed for 90 days 11/07 completed Blood Glucose Monitor System miscella neous kit;Jose rded Status: Recorded on: 12/02/19 11 10:06AM; Disconti nued Status: Disconti nued on: 11/08/19 12 3:42PM;U ser: blumc;Es t. Completi on: 03/01/20 11 Not Available Not Available Not Available temazepam 15 mg capsule Take 1 capsule every day by oral route in the evening for 30 days. 05/30 completed Not Available Not Available Not Available Zoloft 50 mg tablet Take 1 tablet every day by oral route. 09/28 completed Not Available Not Available Not Available temazepam 30 mg capsule Take 1 capsule every day by oral route for 30 days. 06/17 completed Not Available Not Available Not Available ciproflox acin 0.3 % eye drops INSTILL 1 DROP INTO AFFECTED EYE(S) BY OPHTHALM IC ROUTE EVERY 2 HOURSWHI LE AWAKE FOR 2 DAYS THEN 1 DROP EVERY 4 HRS WHILE AWAKE FOR 5 DAYS 01/10 completed Not Available Not Available Not Available lorazepam 2 mg tablet Take 1 tablet every day by oral route for 1 day. 06/28 completed Not Available Not Available Not Available meclizine 25 mg tablet Take 1 tablet every day by oral route as needed. 04/12 completed Not Available Not Available Not Available phenazopy ridine 100 mg tablet take 1 tablets (100 mg) by oral route 3 times per day after meals for 2 days 01/28 completed phenazop yridine 100 mg oral tablet;P rescribe Status: Prescrib ed on: 11/27/19 14 1:10PM;D iscontin ued Status: Disconti nued on: 01/29/20 14 3:38PM;U ser: grayn;Es t. Completi on: 11/29/19 14;Indic ation: Urinary Tract Irritati on - (16.7889 00);Immanuel Rodriges fied: 11/27/19 14 1:10PM Not Available Not Available Not Available pantopraz ole 40 mg tablet,de layed release Take 1 tablet every day by oral route before meals for 30 days. 05/20 completed Not Available Not Available Not Available erythromy los 5 mg/gram (0.5 %) eye ointment 04/26 completed Not Available Not Available Not Available cyanocoba ti (vit B-12) 1,000 mcg/mL injection solution Inject 1 mL every month by intramus cular route. 01/10 completed Not Available Not Available Not Available Cipro 500 mg tablet take 1 tablet (500 mg) by oral route 2 times per day 11/07 completed Cipro 500 mg oral tablet;R ecorded Status: Recorded on: 08/19/19 12 3:05PM;D iscontin ued Status: Disconti nued on: 11/08/19 12 3:42PM;U ser: meyerst; Indicati on: UTI - (599.0); Printed: 08/22/19 12 Not Available Not Available Not Available promethaz ine 25 mg tablet take 1/2 to 1 tablet by oral route q 6hr prn nausea 02/19 completed prometha zine 25 mg oral tablet;R ecorded Status: Recorded on: 11/15/19 12 4:10PM;D iscontin ued Status: Disconti nued on: 02/20/20 12 3:19PM;U ser: kerrs;Es t. Completi on: 12/15/19 12;Print ed: 11/15/19 12 Not Available Not Available Not Available polymyxin B sulfate 10,000 unit-trim ethoprim 1 mg/mL eye drops INSTILL 2 DROPS INTO AFFECTED EYE(S) BY OPHTHALM IC ROUTE EVERY 6 HOURS 05/20 completed Not Available Not Available Not Available sulfameth oxazole 200 mg-trimet hoprim 40 mg/5 mL oral suspensio n take 20 millilit ers by oral route every 12 hours for 10 days 05/10 completed sulfamet hoxazole -trimeth oprim 200-40 mg/5 mL oral suspensi on;Presc ribe Status: Prescrib ed on: 12/01/19 13 3:30PM;D iscontin ued Status: Disconti nued on: 05/10/19 14 4:18PM;U ser: [email or web address];E st. Completi on: 12/11/19 13;Indic ation: Bacteria l Urinary Tract Infectio n - (10.5990 04);Phar Zahira fied: 12/01/19 13 3:30PM Not Available Not Available Not Available docusate sodium 100 mg capsule TAKE 1 CAPSULE BY MOUTH TWICE DAILY WITH 8OZ WATER 01/25 completed Not Available Not Available Not Available Provera 10 mg tablet take 1 tablet (10 mg) by oral route once daily for 10 days 11/26 completed Provera 10 mg oral tablet;P rescribe Status: Prescrib ed on: 05/10/19 14 4:40PM;D iscontin ued Status: Disconti nued on: 11/27/19 14 12:52PM; User: linda ;Est. Completi on: 05/20/19 14;Indic ation: Secondar y Amenorrh ea - (10.6260 02);Rohanr Zahira fied: 05/10/19 14 4:40PM Not Available Not Available Not Available Proventil HFA 90 mcg/actua tion aerosol inhaler inhale 1 - 2 puffs by inhalati on route every 6 hours as needed for 30 days 11/07 completed Proventi l HFA 90 mcg/actu ation inhalati on HFA aerosol inhaler; Recorded Status: Recorded on: 11/20/19 11 2:31PM;D iscontin ued Status: Disconti nued on: 11/08/19 12 3:42PM;U ser: [email or web address];Es t. Completi on: 02/18/20 11 Not Available Not Available Not Available Vistaril 25 mg capsule Take 1 capsule 4 times a day by oral route. 05/20 completed Not Available Not Available Not Available mirtazapi ne 15 mg tablet Take 1 tablet every day by oral route for 30 days. 05/13 completed Not Available Not Available Not Available albuterol 90 mcg/actua tion aerosol inhaler 2 puffs before exercise 11/03 completed albutero l 90 mcg/actu ation inhalati on aerosol; Recorded Status: Recorded on: 08/01/19 09 5:09PM;D iscontin ued Status: Disconti nued on: 11/04/19 11 1:24PM;U ser: grossert ;Est. Completi on: 01/28/20 09;Indic ation: Acute Asthma Attack - ();Prin gabriel: 08/01/19 09 Not Available Not Available Not Available ibuprofen 600 mg tablet TAKE ONE (1) TABLET BY ORAL ROUTE EVERY SIX (6) HOURS NEEDED 04/18 completed Not Available Not Available Not Available azithromy los 200 mg/5 mL oral suspensio n take 12.5 millilit ers by oral route twice on the first day and then once on days 2, 3, 4, and 5. 03/27 completed azithrom ycin 200 mg/5 mL oral suspensi on for reconsti tution;R ecorded Status: Recorded on: 03/02/20 12 5:01PM;D iscontin ued Status: Disconti nued on: 03/27/20 12 11:13AM; User: [email or web address]; Printed: 03/02/20 12 Not Available Not Available Not Available polyethyl jolanta glycol 3350 17 gram/dose oral powder TAKE ONE HALF CAP FULL WITH WATER OR JUICE ONCE DAILY 08/06 completed Not Available Not Available Not Available zolpidem 10 mg tablet TAKE ONE (1) TABLET EVERY DAY BY ORAL ROUTE AFTER A MEAL FOR 30 DAYS. active Not Available Not Available No t Available methylpre dnisolone 4 mg tablets in a dose pack take as directed for 6 days 05/27 completed Not Available Not Available Not Available paroxetin e 40 mg tablet take 1 tablet by oral route daily along wtih 20mg tablet qd for 30 days 09/23 completed pregnanc y Not Available Not Available Not Available brompheni ramine-ps eudoephed rine-DM 2 mg-30 mg-10 mg/5 mL oral syrup Take 10 mL every 4 hours by oral route as needed for 4 days. 05/27 completed Not Available Not Available Not Available fluticaso ne propionat e 50 mcg/actua tion nasal spray,surendra pension inhale 2 sprays in each nostril by intranas al route once daily 05/30 completed Not Available Not Available Not Available clotrimaz ole 1 % topical cream apply to the affected and surround ing areas of skin by topical route 2 times per day morning and evening 11/17 completed clotrima zole 1 % topical cream;Re corded Status: Recorded on: 06/17/19 09 6:23PM;D iscontin ued Status: Disconti nued on: 11/18/19 09 3:26PM;U ser: bess ;Indicat ion: Cutaneou s Candidia sis - ();Prin gabriel: 06/17/19 09 Not Available Not Available Not Available Monistat 1 Combo Pack 1,200 mg-2 % vaginal ovule and cream apply to the affected area(s) by topical route 2 times per day in the morning and evening for up to 7 days as needed for 1 day 10/19 completed Monistat 1 Combo Pack 1,200-2 mg-% vaginal kit;Jose rded Status: Recorded on: 07/02/19 10 10:35AM; Disconti nued Status: Disconti nued on: 10/20/19 10 9:33AM;U ser: skip rennerEst. Completi on: 07/03/19 10;Print ed: 07/02/19 10 Not Available Not Available Not Available Paxil 30 mg tablet take 1 tablet (30 mg) by oral route once daily for 30 days 06/01 completed Paxil 30 mg oral tablet;R ecorded Status: Recorded on: 03/30/20 15 2:50PM;D iscontin ued Status: Disconti nued on: 06/01/19 16 3:55PM;U ser: bess RajanEst. Completi on: 09/26/19 16;Indic ation: Anxiety with Depressi on - ();Prin gabriel: 03/30/20 15 Not Available Not Available Not Available azithromy los 500 mg tablet TAKE TWO (2) TABLETS EVERY DAY BY ORAL ROUTE FOR ONE (1) DAY. 10/14 completed Not Available Not Available Not Available De-Chlor DM 2 mg-10 mg-15 mg/5 mL oral syrup take 2 teaspoon fuls (10 ml) by oral route every 4 hours as needed, not to exceed 8 teaspoon fuls (40 ml) per day 11/17 completed De-Chlor DM 2-10-15 mg/5 mL oral syrup;Re corded Status: Recorded on: 04/09/20 08 2:52PM;D iscontin ued Status: Disconti nued on: 11/18/19 09 3:26PM;U ser: [email or web address] t Not Available Not Available Not Available buprenorp flash 8 mg-naloxo ne 2 mg sublingua l tablet Place 1 tablet twice a day by sublingu al route. 08/06 completed Not Available Not Available Not Available cyclobenz aprine 5 mg tablet Take 1 tablet 3 times a day by oral route as directed for 10 days. 07/11 completed Not Available Not Available Not Available Wellbutri n XL 150 mg 24 hr tablet, extended release Take 1 tablet every day by oral route. 06/16 completed Not Available Not Available Not Available nitrofura ntoin monohydra te/macroc rystals 100 mg capsule TAKE ONE (1) CAPSULE TWICE A DAY BY ORAL ROUTE FOR 7 DAYS 04/17 completed Not Available Not Available Not Available doxycycli ne monohydra te 150 mg tablet take 1 tablet (150 mg) by oral route once daily for 10 days 02/19 completed doxycycl ine monohydr ate 150 mg oral tablet;R ecorded Status: Recorded on: 02/20/20 12 3:43PM;D iscontin ued Status: Disconti nued on: 02/20/20 12 4:02PM;U ser: vesth;Es t. Completi on: 03/01/20 12 Not Available Not Available Not Available Bentyl 1 tid 11/07 completed bentyl 20mg;Rec orded Status: Recorded on: 04/18/20 11 11:12AM; Disconti nued Status: Disconti nued on: 11/08/19 12 3:42PM;U ser: markesbe ryh;Est. Completi on: 04/25/20 11;Indic ation: - (-5);Migdalia nted: 04/18/20 11 Not Available Not Available Not Available Macrobid 1 bid 05/11 completed macrobid 100mg;Re corded Status: Recorded on: 07/02/19 10 10:35AM; Disconti nued Status: Disconti nued on: 05/11/19 11 1:00PM;U ser: markesbe ryh;Est. Completi on: 07/12/19 10;Indic ation: - (-5);Migdalia nted: 07/02/19 10 Not Available Not Available Not Available Sronyx 0.1 mg-20 mcg tablet Take 1 tablet every day by oral route. 04/26 completed Not Available Not Available Not Available HyperRHO S/D 1,500 unit (300 mcg) intramusc ular syringe Inject 300 microgra ms by intramus cular route as directed . 01/25 completed Not Available Not Available Not Available FeroSul 325 mg (65 mg iron) tablet TAKE ONE (1) TABLET EVERY OTHER DAY BY ORAL ROUTE FOR 30 DAYS. 01/25 completed Not Available Not Available Not Available levocetir izine 5 mg tablet Take 1 tablet every day by oral route. 04/18 completed Not Available Not Available Not Available Travel Sickness (meclizin e) 25 mg chewable tablet 04/12 completed Not Available Not Available Not Available Bertha 0.35 mg tablet 06/16 completed Not Available Not Available Not Available Viibryd 10 mg tablet TAKE ONE (1) TABLET EVERY DAY BY MOUTH FOR 7 DAYS. 12/17 completed Not Available Not Available Not Available vilazodon e 40 mg tablet TAKE ONE (1) TABLET BY MOUTH EVERY DAY active Not Available Not Available No t Available Viibryd 20 mg tablet TAKE ONE (1) TABLET EVERY DAY BY ORAL ROUTE FOR 30 DAYS. 01/10 completed dose increase d Not Available Not Available Not Available Nexplanon 68 mg subdermal implant Inject 1 implant by subcutan eous route. 06/25 completed Not Available Not Available Not Available 28 mg iron-800 mcg tablet Take 1 tablet every day by oral route as directed for 30 days. 01/25 completed Not Available Not Available Not Available PNV 29-1 29 mg iron-1 mg tablet TAKE ONE (1) TABLET(S ) EVERY DAY BY ORAL ROUTE DIRECTED FOR 30 DAYS. 07/06 completed Not Available Not Available Not Available naloxone 4 mg/actuat ion nasal spray 07/04 completed Not Available Not Available Not Available Flonase Sensimist 27.5 mcg/actua tion nasal spray,surendra pension Take 1 spray every day by nasal route. 05/30 completed Not Available Not Available Not Available Lucemyra 0.18 mg tablet 04/18 completed Not Available Not Available Not Available Vyleesi 1.75 mg/0.3 mL subcutane ous auto-inje ctor inject SQ PRN at least 45 min before anticipa gabriel sexual activity . No more than 1 dose per 24 hr or 8 doses per month. 01/27 completed Not Available Not Available Not Available Tab-A-Vit e 400 mcg tablet 04/18 completed Not Available Not Available Not Available Brixadi Monthly 64 mg/0.18 mL solution, extend.re l. subcut.sy ringe Inject 64 mg subcutan eously every four weeks 07/04 completed Not Available Not Available Not Available Brixadi Weekly 16 mg/0.32 mL solution, extend.re l. subcut.sy ringe Inject 16 mg subcutan eously once a week 07/04 completed Not Available Not Available Not Available Vitals Date Recorded Body height Body mass index (BMI) Body weight Oxygen saturation Oxygen saturation in Arterial blood by Pulse oximetry Respiratory rate Heart rate Body temperature Systolic blood pressure Diastolic blood pressure Provider Name and Address Organization Details Last Updated DateTime 5 162.56 cm 22.2 kg/m2 50336.2 2 g 97 % 97 % 18 /min 100 /min 98.2 [degF] 110 mm[Hg] 70 mm[Hg] Justine neal [place] - [facility] 5 13:15:54 Date Recorded Body height Body mass index (BMI) Body weight Body temperature Oxygen saturation Oxygen saturation in Arterial blood by Pulse oximetry Heart rate Respiratory rate Systolic blood pressure Diastolic blood pressure Provider Name and Address Organization Details Last Updated DateTime 5 162.56 cm 22.1 kg/m2 82164.4 2 g 98 [degF] 99 % 99 % 104 /min 18 /min 98 mm[Hg] 62 mm[Hg] Justine CrainOdette [facility] - [facility] 5 10:07:32 Date Recorded Body height Body mass index (BMI) Body weight Heart rate Oxygen saturation Oxygen saturation in Arterial blood by Pulse oximetry Respiratory rate Systolic blood pressure Diastolic blood pressure Provider Name and Address Organization Details Last Updated DateTime 5 162.56 cm 21.3 kg/m2 33040.4 5 g 102 /min 96 % 96 % 18 /min 106 mm[Hg] 68 mm[Hg] Justine Taniya [facility] - [facility] 5 13:40:45 Date Recorded Body height Body mass index (BMI) Body weight Heart rate Oxygen saturation Oxygen saturation in Arterial blood by Pulse oximetry Respiratory rate Body temperature Systolic blood pressure Diastolic blood pressure Provider Name and Address Organization Details Last Updated DateTime 5 162.56 cm 20.8 kg/m2 98068.6 8 g 109 /min 98 % 98 % 18 /min 98.2 [degF] 100 mm[Hg] 60 mm[Hg] Justine Monahan [facility] - [facility] 5 15:58:35 Date Recorded Body height Body mass index (BMI) Body weight Heart rate Oxygen saturation Oxygen saturation in Arterial blood by Pulse oximetry Respiratory rate Systolic blood pressure Diastolic blood pressure Provider Name and Address Organization Details Last Updated DateTime 5 162.56 cm 19.9 kg/m2 90183.7 1 g 102 /min 98 % 98 % 18 /min 106 mm[Hg] 70 mm[Hg] Crystal Aracelis [place] - [facility] 5 16:50:25 Social History Question Answer Notes LastModified by Organizat ion Details LastModified Time Tobacco Smoking Status Never Smoker Katie alcantar, [place] - [facility] 08/16/2016 17:33:02 Able To Swim? Yes [email or web address] Information not available 08/16/2016 Do You Have An Advance Directive? No [email or web address] Information not available 09/23/2016 If You Are , What Was Your Level Of Alcohol Consumption Prior To ? None Information not available 06/25/2020 Is Anesthesia Consult Planned? Yes [email or web address] Information not available 09/23/2016 Do You Wear A Helmet When Biking? No Information not available 08/16/2016 Plan Yes [email or web address] Information not available 09/23/2016 Are You Blind Or Do You Have Difficulty Seeing? No Information not available 08/16/2016 Is Blood Transfusion Acceptable In An Emergency? Yes Information not available 09/23/2016 Breast Feeding? Yes Pump And Feed Information not available 06/25/2020 What Is Your Level Of Caffeine Consumption? Moderate Information not available 06/25/2020 Live With Cats/exposure To Cat Litter Yes [email or web address] Information not available 09/23/2016 How Much Tobacco Do You Chew? 2-4/day Information not available 06/25/2020 In The 14 Days Before Symptom Onset, Have You Had Close Contact With A Laboratory-confi rmed COVID-19 While That Case Was Ill? No [email or web address] Information not available 07/23/2021 In The 14 Days Before Symptom Onset, Have You Had Close Contact With A Person Who Is Under Investigation For COVID-19 While That Person Was Ill? No [email or web address] Information not available 07/23/2021 Have You Been To An Area Known To Be High Risk For COVID-19? No [email or web address] Information not available 07/23/2021 Are You Deaf Or Do You Have Serious Difficulty Hearing? No Information not available 08/16/2016 Diabetes No [email or web address] Information not available 09/23/2016 What Type Of Diet Are You Following? REGULAR [email or web address] Information not available 09/23/2016 Which Illicit Or Recreational Drugs Have You Used? None [email or web address] Information not available 05/27/2019 Have You Processed Blood Or Body Fluids From An Ebola Virus Disease Patient Without Appropriate PPE? No [email or web address] Information not available 07/23/2021 Do You Reside In Or Have You Traveled To An Area Where Ebola Virus Transmission Is Active? No [email or web address] Information not available 07/23/2021 Education 12 [email or web address] Information not available 09/23/2016 What Is The Highest Grade Or Level Of School You Have Completed Or The Highest Degree You Have Received? RR89042-5 [email or web address] Information not available 01/31/2018 How Many Days Of Moderate To Strenuous Exercise, Like A Brisk Walk, Did You Do In The Last 7 Days? 0 Information not available 01/31/2018 On Those Days That You Engage In Moderate To Strenuous Exercise, How Many Minutes, On Average, Do You Exercise? 0 Information not available 01/31/2018 Swimming/diving Yes Informati on not available 08/16/2016 Have There Been Any Changes To Your Family Or Social Situation? Yes [email or web address] Information not available 07/23/2021 How Hard Is It For You To Pay For The Very Basics Like Food, Housing, Medical Care, And Heating? Somewhat Hard [email or web address] Information not available 07/23/2021 What Is The Fluoride Status Of Your Home? Fluoridated [email or web address] Information not available 07/23/2021 Frequent Air Travel No [email or web address] Information not available 09/23/2016 Hard Of Hearing Or Deaf In One Or Both Ears? No Information not available 08/16/2016 Have You Recently Or Are You Planning To Travel To An Area With Zika Virus? No [email or web address] Information not available 07/23/2021 High Blood Pressure No [email or web address] Information not available 09/23/2016 High Cholesterol No [email or web address] Informat ion not available 09/23/2016 High Number Of Sexual Partners No [email or web address] Information not available 09/23/2016 Illicit Drugs Pre- Denies Information not available 06/25/2020 Legally Blind In One Or Both Eyes? No Information not available 08/16/2016 Live Alone Or With Others? With Others [email or web address] Information not available 09/23/2016 Latex Allergy No [email or web address] Information not available 09/23/2016 Last Menstrual Period? 07/05/2021 [email or web address] Information not available 07/23/2021 Marital Status [email or web address] Informatio n not available 07/23/2021 Do You Have A Medical Power Of Instructor Watch Assembly? No [email or web address] Information not available 07/23/2021 What Was The Date Of Your Most Recent Tobacco Screening? 08/06/2024 Information not available 08/06/2024 How Many Children Do You Have? 3 Information not available 06/25/2020 Performs Monthly Self-breast Exam? No bstears Information not available 05/10/2017 Do You Have Any Pets? Yes [email or web address] Information not available 09/23/2016 Do You Use Protection During Sex? No [email or web address] Information not available 03/27/2018 Do You Use Protection Against STDs? No [email or web address] Information not available 07/23/2021 What Is Your Relationship Status? Has A New Partner Since 2017 [email or web address] Information not available 05/27/2019 Seat Belts Used Routinely Yes Information not available 08/16/2016 Are You Sexually Active? Yes Information not available 08/16/2016 Smoke Alarm In Home Yes Information not available 08/16/2016 Do You Have Smoke And Carbon Monoxide Detectors In Your Home? Yes [email or web address] Information not available 09/23/2016 Are You Passively Exposed To Smoke? Yes [email or web address] Information not available 09/23/2016 How Much Tobacco Do You Smoke? No Information not available 03/27/2018 Smoking Pre- No Information not available 09/23/2016 General Stress Level Low [email or web address] Information not available 09/23/2016 Do You Use Sunscreen Routinely? Yes Information not available 08/16/2016 Has Tobacco Cessation Counseling Been Provided? Yes Information not available 10/26/2021 On What Date Was Tobacco Cessation Counseling Provided? 08/06/2024 Information not available 08/06/2024 How Many Years Have You Smoked Tobacco? 8 [email or web address] Information not available 03/27/2018 Do You Have Difficulty Walking Or Climbing Stairs? No [email or web address] Information not available 09/23/2016 Do You Have Symptoms Associated With Zika Virus (fever, Rash, Joint Pain, Or Conjunctivitis)? No Information not available 09/23/2016 Have You Recently (within The Last 12 Weeks, Or During A Current ) Traveled To Or Lived In A Zika-affected Area? No [email or web address] Information not available 09/23/2016 What Contraceptive Method Was Reported At Start Of This Visit? Female Sterilization [email or web address] Information not available 07/23/2021 What Contraceptive Method Was Reported At End Of This Visit? Female Sterilization [email or web address] Information not available 07/23/2021 Do You Want To Talk About Contraception Or Prevention During Your Visit Today? No - I Am Already Using Contraception [email or web address] Information not available 07/23/2021 Do You Have Any Future Plans To Get ? No, I Don't Want To Become [email or web address] Information not available 07/23/2021 Sex: Female Functional Status Question Answer Note LastModified by Organizat ion Details LastModified Time Do you or have you ever used smokeless tobacco? Current snuff user Information not available 06/25/2020 Are you currently employed? No Information not available 08/16/2016 Do you have transportation difficulties? No [email or web address] Information not available 07/23/2021 Urinary incontinence assessment performed? Yes [email or web address] Information not available 07/26/2018 Are you able to care for yourself? Yes Information n ot available 08/16/2016 Do you have difficulty dressing or bathing? No Information not available 08/16/2016 Do you or have you ever used e-cigarettes or vape? Never used electronic cigarettes Information not available 04/09/2019 What is your exercise level? None [email or web address] Information not available 09/23/2016 Do you use any illicit or recreational drugs? No [email or web address] Information not available 07/23/2021 Do you or have you ever used any other forms of tobacco or nicotine? No [email or web address] Information not available 07/23/2021 What is your level of alcohol consumption? None Information not available 08/16/2016 What is your status? Not [email or web address] Information no t available 07/23/2021 Are you able to walk? YESWOREST [email or web address] Information not available 11/28/2016 Do you have difficulty doing errands alone? No Information not available 08/16/2016 What is your occupation? unemployeed laid off Information not available 06/25/2020 Mental Status Question Answer Note LastModified by Organizat ion Details LastModified Time Do you feel stressed (tense, restless, nervous, or anxious, or unable to sleep at night)? [id number] [email or web address] Information not available 01/31/2018 Do you have difficulty concentrating, remembering or making decisions? No Information no t available 08/16/2016 Family History Relationship Description Onset Age of this Age Resolved Age Notes LastModified by Organization Details LastModified Time Mother Anxiety disorder [email or web address] Not available 09/23 12:48:53 Mother Depressive disorder Not available 09/23 12:49:00 Maternal Grandfather Malignant tumor of pharynx [email or web address] Not available 09/23 12:49:22 Brother Diabetes mellitus Not available 09/23 12:49:34 Paternal Grandmother Diabetes mellitus Not available 09/23 12:49:34 Maternal Grandmother Hypoglycemia [email or web address] Not availabl e 09/23/2016 12:49:43 Father Chronic obstructive pulmonary disease [email or web address] Not available 09/23 12:49:59 Father Pulmonary emphysema [email or web address] Not available 09/23 12:50:07 Medical History Condition Response Pancreatitis N Other N Atrial Fibrillation N congenital heart disease N Blood Diseases N Hyperthyroidism N Rheumatoid arthritis N Blood Transfusion N Erectile Dysfunction N amputation N Skin Lesions N Depression Y Pneumonia N Incontinence N Murmur N Edema N Alzheimer's Disease N Migraine Headaches N Tobacco Abuse N Anxiety Disorder Y Hemorrhoids N Obesity N Vision or Eye Problems N Restless Leg Syndrome N Arthritis N Polyps N Infertility N Carpal Tunnel N Acid Reflux (GERD) N Cancer N Varicosities N Stroke N Tendonitis N Crohn's Disease N Hypercholesterolemia N Skin Cancer N Headaches N Fibromyalgia N Irritable Bowel Syndrome N Anal Fissure N Kidney Disease N Heart Problems N Hospitalizations Y Gallstones N Kidney or Bladder Problems N Goiter N Acne N Eating Disorder N Mahoney's Esophagus N Hypertriglyceridemia N Constipation N Embolism N Vitamin B12 Deficiency N Deviated Septum N AIDS/HIV N Myocardial Infarction N Asthma N Mitral Valve Disorders N Vertigo N Hepatitis N Thyroid Cancer N Neuropathy N History of DVT N Herniated Disc N Chicken Pox N Von Willebrands Disease N Thrombophilias N Breast Cancer N Hernia N Plantar Fasciitis N Hypothyroidism N Lung Disease N Defects or Inherited Disease N Breast Problem N Ovarian Cyst N Anesthesia Complications N Testosterone Deficiency N Interstitial Cystitis N Congenital Anomalies N Hypoglycemia N Blood clot N Vitamin D Deficiency N Cellulitis N Endometriosis N Bladder or Kidney Problems N Fracture N Schizophrenia N Panic Disorder N Concussion N Spina Bifida N Osteoarthritis N Parkinson's Disease N Disc Protrusion N STI N Esophagitis N Angina N Thyroid Problems N GI Problems N ADD/ADHD N Anemia N Multiple Sclerosis N Abnormal PAP N Lumbago N Mental Illness N Psychiatric Illness N Ovarian Cancer N Diabetes N Degenerative Disc Disease N Seizures/Epilepsy N Syncope N Hyperlipidemia N Insomnia N Eczema N Abuse/Domestic Violence N Attention Deficient Disorder N Dementia N Ulcerative colitis N Cerebrovascular Disease N Depression N Guillain-[place] N Sleep Apnea N Aneurysm N Bronchitis N Heart Disease N Suicidal Ideation N Pre-Eclampsia N Hypertension N Osteoporosis N Gynecological History Statement/Question Response Date of Last Mammogram Flow Light Date of LMP 08/02/2024 Post Menopausal Bleeding N STIs/STDs Y Date of Last Colonoscopy Abnormal Pap Yes On BCP's at Conception? N Colposcopy 04/26/2018 HPV Vaccine Duration of Flow (days) 6 Current Control Method Sterilizati on Age at Menarche 10 Age at First Child 17 Last Annual Exam/Provider 05/27/19 w/ TOMMY Frequency of Cycle (Q days) 30 Most Recent Bone Density Sexually Active? Y Date of Last Cervical Culture 07/23/2021 Menses Monthly Y Date of Last Pap Smear 04/13/2021 Sexual Problems? N LMP Approximate Hormone Replacement Therapy N Obstetrics History GPAL:G 4 P 3 1 0 4 Type Value Full Term 3 Premature 1 Living 4 Total 4 Immunizations Vaccine Type Date Status Note Provider Name and Address Organization Details Recorded Time Tdap 11/12/19 21 completed Infusion Nurse [address], [address], [place] - [facility] 11/11/2020 10:47:24 Tdap 03/31/20 17 completed Not Available [facility] 05/18/2019 03:54:53 Influenza, split virus, quadrivalent, preservative 04/15/20 19 completed Not Available [facility] 04/18/2023 08:58:36 Influenza, split virus, quadrivalent, preservative 03/27/20 18 cancelled patient objection Not Available [facility] 05/18/2019 03:55:25 OPV 12/25/18 99 completed Jason alcantar [place] - [facility] 04/11/2022 17:11:55 DTaP, unspecified formulation 12/25/18 99 completed Crystale Lezama null, [place] - [facility] 04/11/2022 17:11:55 Hep B, unspecified formulation 07/13/18 96 completed Crystale Lez[place] - [facility] 04/11/2022 17:11:55 DTP-Hib 10/16/18 96 completed Crystale Lez[place], [place] - [facility] 04/11/2022 17:11:55 MMR 12/25/18 99 completed Crystale Lez[place] - [facility] 04/11/2022 17:11:55 Tdap 07/27/19 13 completed Crystale Lez[place] - [facility] 04/11/2022 17:11:55 MMR 10/16/18 96 completed Crystale Lezama [place], [place] - [facility] 04/11/2022 17:11:55 Past Encounters Encounter ID Performer Location Encounter Start Date Encounter Closed Date Diagnosis/Indication Diagnosis SNOMED-CT Code Diagnosis ICD10 Code Diagnosis Note [id number] Lorenzo Mays MD [facility] [address] [facility] [place] [address] 06/21/2016 15:16:11 06/21/2016 16:12:48 Upper respiratory infection 72930140 J06.9 Influenza caused by Influenza B virus 42189993 J10.1 force fluidscall if no betterot nsaids [id number] Brayan Reich MD [address] [place] [address] 08/16/2016 17:24:01 08/16/2016 17:53:41 Depressive disorder 62878825 F33.9 Fatigue 37508326 R53.83 Vitamin D deficiency 347 56024 E55.9 Screening for malignant neoplasm of cervix 971098925 Z12.4 [id number] BETINA Gillespie [facility] [address] [place] [address] [place] [address] 09/23/2016 12:17:47 09/23/2016 13:18:10 Urine test positive 560636392 Z32.01 [id number] BETINA Gillespie [facility] [address] [place] [address] [place] [address] 10/11/2016 10:18:18 10/11/2016 13:11:31 Normal 14706763 Z34.90 Routine an tenatal care 207521434 Z34.90 Depressive disorder 3548 9007 F32.89 Anxiety 79781693 F41.9 Gestation period, 9 weeks 466355 Z3A.09 [id number] Milana Sanchez CNM [place] [facility] [address] [place] [address] [place] [address] 10/26/2016 14:05:47 10/26/2016 15:08:18 Normal 09340310 Z34.90 Gestation period, 11 weeks 33245643 Z3A.11 Screening for Chlamydia trachomatis 522133284 Z11.8 Venereal d isease screening 769082949 Z11.3 Bacterial vaginosis 4197 23810 N76.0 [id number] [place] Sarabia MD [place] [facility] [address] [place] [address] [place] [address] 11/22/2016 13:42:16 11/22/2016 14:33:53 Normal 50266662 Z34.92 Anxiety 45268592 F41.9 Gestation period, 15 weeks 0303265 Z3A.15 screening 2437 42944 Z36 [id number] Jesi [address] [place] [address] 11/28/2016 13:51:19 11/28/2016 14:39:28 Body mass index 20-24 - normal 841674269 Z68.24 Vertigo 980972650 R42 Anxiety 99362942 F41.9 Allergic rhinitis 140509 04 J30.9 06445517 Z33.1 [id number] [place] Sarabia MD [facility] [address] [place] [address] [place] [id number] 12/15/2016 13:36:33 12/15/2016 14:29:27 Depressive disorder 94681348 F32.9 Anxiety 90115730 F41.9 Normal 7966745 2 Z34.92 Gestation period, 18 weeks 33790912 Z3A.18 [id number] Pennie Cody [address] [place] [address] 01/10/2017 10:12:11 01/10/2017 11:17:02 Upper respiratory infection 98002776 J06.9 [id number] [place] Sarabia MD [facility] [place] [facility] [address] [place] [address] [place] [id number] 01/19/2017 12:27:32 01/19/2017 14:06:56 High risk 26916549 O09.92 Depressive disorder 3548 9007 F32.9 Anxiety 16806988 F41.9 Maternal d rug exposure 28245353 O26.92 [id number] Gunjan Duque CNM [place] [facility] [address] [place] [address] [place] [address] 7 02/16/2017 08:30:44 02/16/2017 10:48:38 Routine care 620063794 Z34.92 Gestation period, 27 weeks 51329523 Z3A.27 High risk 4720 0007 O09.92 [id number] Tiago Campuzano MD [place] [facility] [address] [place] [address] [place] [address] 7 03/01/2017 10:31:28 03/01/2017 11:16:46 High risk 03755280 O09.93 Depressive disorder 3548 9007 F32.9 Anxiety 00880228 F41.9 Gestation period, 29 weeks 54689263 Z3A.29 [id number] Emelina Hyman DO [place] [facility] [address] [place] [address] [place] [id number] 7 03/16/2017 13:04:15 03/16/2017 14:11:20 High risk 72461692 O09.93 Gestation period, 31 weeks 22586940 Z3A.31 Anxiety 54539447 F41.9 [id number] Gunjan Duque CNM [place] [facility] [address] [place] [address] [place] [id number] 7 03/31/2017 10:32:41 03/31/2017 11:38:13 Gestation period, 33 weeks 98301873 Z3A.33 High risk 4720 0007 O09.92 Anxiety 11458045 F41.9 screening 2437 55834 Z36.9 Administra tion of diphtheria, pertussis, and tetanus vaccine 823271238 Z23 [id number] Milana Sanchez CNM [facility] [place] [facility] [address] [place] [address] [place] [address] 7 04/12/2017 12:46:04 04/12/2017 13:26:19 High risk 13128139 O09.93 Gestation period, 35 weeks 44979629 Z3A.35 screening 2437 25239 Z36.85 [id number] DO Delfina [place] [employer] [employer] [address] [place] [address] [place] [id number] 7 04/20/2017 16:09:08 04/20/2017 17:05:35 High risk 35167613 O09.93 Anxiety 61088012 F41.9 Gestation period, 36 weeks 53291525 Z3A.36 [id number] Gunjan Duque CNM [place] [facility] [address] [place] [address] [place] [id number] 7 04/26/2017 10:42:34 04/26/2017 11:11:52 screening 959624259 Z36.9 Gestation period, 37 weeks 37262958 Z3A.37 Normal 3298957 2 Z34.93 [id number] DO Delfina [place] [employer] [employer] [address] [place] [address] [place] [address] 7 05/10/2017 13:42:13 05/10/2017 16:12:36 state 90579190 Z39.2 Body mass index 20-24 - normal 676695329 Z68.22 Anxiety 82848270 F41.9 Engorgemen t of breasts 86603665 N64.59 Discussed supportive therapies for including binding, cabbage leaves, warm or cold compresses . Tylenol or Motrin. [id number] DO Mukesh [place]oyo [employer] [address] [place] [address] [place] [address] 7 06/16/2017 11:16:38 06/16/2017 13:03:14 state 30111188 Z39.2 Body mass index 20-24 - normal 445812906 Z68.21 Contracept ion care management 189379017 Z30.9 depression 58 235168 O99.345 Denies the desire to harm herself or her baby. [id number] Cathy Mattson [facility] [address] [place], [place] [address] [place] [address] 06/22/2017 13:19:06 06/22/2017 14:09:57 Streptococcal tonsillitis 25672053 J03.00 [id number] Cathy Mattson [facility] [address] [place], [place] [address] [address] 09/28/2017 08:57:23 09/28/2017 10:39:43 Low back pain 414592657 M54.5 Contracept ion care management 644645376 Z30.9 [id number] Yoselin Her [facility] [employer] [employer] [facility] [address] [place] [address] [place] [id number] 7 01/31/2018 14:08:54 01/31/2018 14:51:30 Vaginal discharge 417856387 N89.8 Dysuria 91516205 R30.0 [id number] Kiki Reyna [facility] [employer] [employer] [facility] [address] [place] [address] [place] [address] 7 03/27/2018 12:55:20 03/27/2018 14:25:20 Routine gynecologic examination done 9605203006 9101 Z01.419 Depression screening 171 926630 Z13.89 PHQ-9 completed today. Diet education 36048194 Z71.3 Counseling 707947777 Z71 .82 Exercise counselchris faye. Patient encouraged to exercise 30 minutes 5 days a week. Examinatio n of blood pressure 000186682 Z01.30 Vaccine de clined by patient 0529354179 02 Z28.21 Pt declined flu vaccine today. Screening for malignant neoplasm of cervix 631384821 Z12.4 Z11.8 Patient advised that I will follow up with results. Contracept ion education 890401615 Z30.09 Pt was instructed to have beta at [facility] 1 hour prior to Nexplanon insertion appt. Contracept ion care management 679251914 Z30.9 Pt needs refills on her OCPs until her Nexplanon insertion appt. 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 F17.200 Smokeless tobacco abuse [id number] MARINA [place] [employer] [address] [place] [address] [place] [address] 04/12/2018 09:04:37 04/12/2018 10:04:33 Contraception care management 004413565 Z30.8 Implantati on of subcutaneous contraceptive 684530272 Z30.49 [id number] MARINA [place] [employer] [employer] [facility] [address] [place] [address] [place] [address] 7 04/26/2018 09:18:51 04/26/2018 11:03:23 High grade squamous intraepithelial lesion on cervical Papanicolaou smear 1301295753 9107 R87.629 [id number] Rashi Javier [address] [place] [address] 05/14/2018 12:28:43 05/14/2018 13:59:30 Nausea and vomiting 76895082 R11.2 Low back pain 448321212 M54.5 Unintentio nal weight loss 750087629 R63.4 [id number] Cathy Mattson [facility] [address] [address] 05/23/2018 09:43:00 05/23/2018 12:32:00 Thoracic back pain 246349385 M54.6 Low back pain 600500751 M54.5 Gastroesop hageal reflux disease without esophagitis 323969621 K21.9 Early satiety 930776308 R68.81 Chronic constipation 236 481028 K59.09 [id number] DO Mukesh Santoyo [employer] [address] [place] [address] [place] [address] 7 07/11/2018 10:27:57 07/11/2018 11:26:11 Abdominal pain 37728768 R10.13 Body mass index less than 20 190341701 Z68.1 Pain in pelvis 37282800 R10.2 Recommend [place] [id number] DO Mukesh Santoyo [employer] [address] [place] [address] [place] [address] 7 07/18/2018 09:25:47 07/18/2018 14:29:48 Pain in pelvis 63797772 R10.2 Body mass index less than 20 854281133 Z68.1 [id number] MARINA [place] [employer] [address] [place] [address] [place] [address] 7 07/26/2018 08:41:26 07/26/2018 09:33:13 Cervicovaginal cytology: High grade squamous intraepithelial lesion or carcinoma 078783600 R87.613 Abdominal pain 13983817 R10.9 Pt is scheduled for Dx lapDiscuss ed keep food diary if dx lap is negative. [id number] DO Mukesh Santoyo [employer] [address] [place] [address] [place] [address] 7 08/08/2018 10:51:31 08/08/2018 12:15:11 Pre-surgery evaluation 913593276 Z01.818 Pain in pelvis 94537514 R10.2 Not controlled with Nexplanon Anxiety 06230851 F41.9 [id number] DO Mukesh Santoyo [employer] [address] [place] [address] [place] [address] 7 09/21/2018 13:02:33 09/21/2018 14:12:51 Pain in pelvis 75461255 R10.2 Not controlled with Nexplanon Nausea and vomiting 1693 2000 R11.2 [id number] DO Mukesh Santoyo [employer] [address] [place] [address] [place] [address] 7 09/25/2018 10:35:29 09/25/2018 10:52:52 Right upper quadrant pain 033829803 R10.11 Discussed benign US findings. Body mass index less than 20 220120079 Z68.1 [id number] Pennie Cody [employer] [place] [address] [place] [place] [address] 01/16/2019 11:09:52 01/16/2019 13:32:16 Conjunctivitis 2210103 H10.9 Upper resp iratory infection 93718455 J06.9 [id number] Pennie Cody APRN [place] [address] [address] 4 03/05/2019 13:23:35 03/05/2019 15:00:15 Low back pain 439984049 M54.5 Influenza- like symptoms 776941823 R68.89 Viral syndrome 715297410 B34.9 [id number] Pennie Cody [address] [place] [address] 05/20/2019 16:22:00 05/20/2019 17:26:04 Influenza-like symptoms 704108883 R68.89 Pain in throat 532832700 R07.0 Depressive disorder 3548 9007 F33.9 Upper resp iratory infection 62722060 J06.9 [id number] MARINA White [employer] [address] [place] [address] [place] [address] 7 05/27/2019 15:05:44 05/27/2019 16:04:34 Routine gynecologic examination done 2240743046 9101 Z01.419 Depression screening 171 905043 Z13.89 PHQ-9 completed today. Diet education 64062844 Z71.3 Counseling 676761141 Z71 .82 Exercise counsellin g. Patient encouraged to exercise 30 minutes 5 days a week. Examinatio n of blood pressure 962558611 Z01.30 Screening for malignant neoplasm of cervix 866019066 Z12.4 Z11.8 Patient advised that I will follow up with results. Surveillan ce of subcutaneous contraceptive implant 746776861 Z30.46 Due for removal on or before 04/12/21. Mixed anxi ety and depressive disorder 853085610 F41.8 Patient identified triggers for anxiety and impact of anxious thinking on functionin g. Discussed strategies to regulate symptoms and need for compliance with treatment. Plan to start medication and will reevaluate in 3 months. Body mass index 20-24 - normal 377796465 Z68.22 [id number] Pennie Cody [address] [place] [address] 06/17/2019 13:36:20 06/17/2019 15:30:46 Influenza 0644169 J11.1 [id number] MARINA White [employer] [address] [place] [address] [place] [address] 7 08/15/2019 15:34:44 08/15/2019 16:47:21 Depressive disorder 36674167 F32.9 PurSue Care Informatio n given. Anxiety 07638320 F41.9 She would like to have an increase in her medication .Informed this would be the max dose.Encou raged counsellin g and Pursue care informatio n given.If this medication does not work, discussed MDL pharmacoge netic testing. Pt is very interested . [id number] MARINA White [employer] [address] [place] [address] [place] [address] 01/13/2020 10:11:20 01/13/2020 12:05:51 Abnormal cervical Papanicolaou smear 857442802 R87.619 Patient advised that I will follow up with results. Anxiety 91699863 F41.9 Pt states her celexa has been very helpful in treating her anxiety. Irritable bowel syndrome with diarrhea 008215696 K58.0 Discussed eating a high fiber diet. Lack or lo ss of sexual desire 002762506 F52.0 Discussed the followin. Address and work toward resolving relationsh ip concerns, stresses, and misunderst andings about sex as well as other issues that may be affecting you and your partner. 2. Focus less on intercours e and more on intimacy. 3. Improve your sex knowledge and skills. 4. Make time for sexual activity and focus on enjoyment and pleasuring each other. She states they have tried all of thee above.She is interested in medical help. [id number] MARINA White [employer] [address] [place] [address] [place] [address] 01/28/2020 13:35:46 01/28/2020 14:54:00 Removal of subcutaneous contraceptive 875902905 Z30.46 Patient tolerated procedure well. We discussed starting PNV and folic acid.She is to call with + UPT. [id number] BETINA Gomez [employer] [address] [place] [address] [place] [address] 7 06/25/2020 14:16:41 06/25/2020 15:15:00 Routine care 462402188 Z34.90 screening 2437 87763 Z36.9 Urine preg brayan test positive 275417905 Z32.01 Overweight 315141904 E66 .3 Nausea 316479746 R11.0 Normal 1756116 2 Z34.93 Gestation period, 9 weeks 049725 Z3A.09 [id number] Nico Montes De Oca MD [place] [facility] [employer] [facility] [address] [place] [address] [place] [address] 7 07/06/2020 12:55:28 07/06/2020 14:44:43 screening 198218233 Z36.9 Gestation period, 11 weeks 94695323 Z3A.11 Threatened miscarriage in first trimester 33482390 O20.0 [id number] Gunjan Duque CNM [place] [facility] [employer] [facility] [address] [place] [address] [place] [address] 7 07/24/2020 14:19:06 07/24/2020 15:15:33 Abnormal cervical Papanicolaou smear 159941102 R87.619 Screening for malignant neoplasm of cervix 630430203 Z12.4 Z11.3 Routine an tenatal care 816355132 Z34.90 Gestation period, 13 weeks 17008625 Z3A.13 Constipation 06581626 K5 9.00 Nausea 821862082 R11.0 Normal 7461544 2 Z34.93 screening 2437 87390 Z36.9 [id number] Gunjan Duque CNM [place] [facility] [employer] [facility] [address] [place] [address] [place] [address] 7 08/21/2020 09:57:08 08/21/2020 10:29:17 screening 190455209 Z36.9 Gestation period, 17 weeks 54269529 Z3A.17 Normal 1866075 2 Z34.93 [id number] DO Delfina [place] [employer] [address] [place] [address] [place] [address] 7 09/11/2020 12:31:24 09/11/2020 13:43:24 Normal 31311184 Z34.93 Gestation period, 20 weeks 20251314 Z3A.20 screening 2437 65268 Z36.9 Routine an tenatal care 237987000 Z34.82 [id number] Gunjan Duque CNM [place] [facility] [employer] [facility] [address] [place] [address] [place] [address] 7 10/22/2020 15:35:24 10/22/2020 16:10:32 screening 257912897 Z36.9 Gestation period, 26 weeks 20097418 Z3A.26 Normal 7894204 2 Z34.93 Anxiety 51583786 F41.9 Mixed anxi ety and depressive disorder 921440493 F41.8 [id number] Gunjan Duque CNM [facility] [place] [facility] [employer] [facility] [address] [place] [address] [place] [address] 7 11/11/2020 09:11:54 11/11/2020 10:36:30 screening 670542624 Z36.9 Blood grou p A Rh(D) negative 916907999 Z67.11 Gestation period, 29 weeks 29170468 Z3A.29 Heartburn 82334997 R12 Administra tion of diphtheria, pertussis, and tetanus vaccine 409997166 Z23 Normal 9521044 2 Z34.93 [id number] [place] Sarabia MD [place] [facility] [address] [place] [address] [place] [address] 7 11/20/2020 08:40:11 11/20/2020 12:15:11 screening 509090716 Z36.9 Blood grou p A Rh(D) negative 649629836 Z67.11 Normal 8289912 2 Z34.93 Gestation period, 30 weeks 97083330 Z3A.30 Cervicovag inal cytology: High grade squamous intraepithelial lesion or carcinoma 517463929 R87.613 Mixed anxi ety and depressive disorder 442295616 F41.8 Overweight 183327760 E66 .3 Recreation al drug user 824582433 F19.10 Glucose to lerance test outside reference range 087228782 R73.09 [id number] Gunjan Duque CNM [facility] [place] [facility] [employer] [address] [place] [address] [place] [address] 7 12/01/2020 11:39:38 12/01/2020 12:08:47 screening 209370596 Z36.9 Gestation period, 31 weeks 98198308 Z3A.31 Vaginal discharge 759630 006 N89.8 Pruritus of vagina 72858 003 L29.3 Pain of le ft hip joint 8865808804 20612 M25.552 Normal 7016250 2 Z34.93 [id number] BETINA [place] [facility] [employer] [address] [place] [address] [place] [address] 7 12/23/2020 11:28:21 12/23/2020 11:50:07 screening 606116696 Z36.9 Gestation period, 35 weeks 71290177 Z3A.35 Anxiety 38342126 F41.9 Normal 1421690 2 Z34.93 [id number] Gunjan Duqeu CNM [facility] [place] [facility] [employer] [address] [place] [address] [place] [address] 7 01/05/2021 16:13:22 01/05/2021 16:35:47 Engorgement of breasts 22411122 N64.59 [id number] Emelina Hyman DO [place] [facility] [employer] [address] [place] [address] [place] [address] 7 01/25/2021 10:52:13 01/25/2021 11:58:29 Pre-surgery evaluation 482275863 Z01.818 state 7058459 1 Z39.2 Counseling for elective sterilization done 1575343660 92108 Z30.2 [id number] [place] Sarabia MD [place] [facility] [employer] [facility] [address] [place] [address] [place] [address] 7 02/11/2021 15:33:54 02/11/2021 16:06:58 Wound cellulitis 668897090 L03.90 Postoperative visit 1836 66392 Z09 History of female sterilization 877220663 Z92.0 state 2705206 1 Z39.2 [id number] Pennie Cody APRN [facility] [address] [address] 07/15/2021 13:55:26 07/15/2021 15:41:40 Anxiety 40558195 F41.9 Anemia 154141422 D64.9 per history Hypokalemia 99810977 E87 .6 per history Endocrine/ metabolic screening 825614952 Z13.228 Unintentio nal weight loss 332779889 R63.4 Vitamin D deficiency 347 57804 E55.9 Depressive disorder 3548 9007 F33.9 pt has tried paxil, zoloft, wellbutrin and celexa and claims they all did not work for her [id number] Pennie Cody [address] 4 07/20/2021 13:47:38 07/20/2021 14:21:04 Cobalamin deficiency 694629511 E53.8 [id number] MARINA [place] [employer] [address] [place] [address] [place] [address] 7 07/23/2021 10:14:40 07/23/2021 10:53:20 Exposure to sexually transmissible disorder 367335941 Z20.2 [id number] Pennie Cody [address] [place] [address] 4 08/30/2021 15:27:00 08/30/2021 15:46:14 Cobalamin deficiency 550398127 E53.8 [id number] Pennie Cody [address] [place] [address] 4 10/14/2021 14:57:12 10/14/2021 15:16:40 Cobalamin deficiency 473062600 E53.8 [id number] Bindu Cevallos [address] [place] [address] 4 10/26/2021 08:33:26 10/26/2021 09:04:02 Dysuria 33317260 R30.9 Nicotine dependence 5629 4008 F17.200 Body mass index 20-24 - normal 500972554 Z68.24 Leukocytes in urine 2757 46779 R82.79 [id number] MARINA De [place] [employer] [address] [place] [address] [place] [address] 7 10/27/2021 10:17:34 10/27/2021 11:28:11 Venereal disease screening 146283713 Z11.3 Body mass index 25-29 - overweight 881639700 Z68.25 [id number] Bindu Cevallos [address] [place] [address] 4 12/10/2021 13:37:57 12/10/2021 14:25:26 Cobalamin deficiency 509918769 E53.8 Mixed anxi ety and depressive disorder 061390710 F41.8 Fatigue 20778762 R53.83 [id number] Bindu Cevallos [address] [place] [address] 4 12/17/2021 14:21:44 12/17/2021 14:43:14 Conjunctivitis 2843290 H10.9 Mixed anxi ety and depressive disorder 367566359 F41.8 [id number] Bindu Cevallos [address] [place] [address] 4 01/10/2022 11:03:45 01/10/2022 11:23:23 Mixed anxiety and depressive disorder 333279604 F41.8 Allergic rhinitis 958026 04 J30.9 [id number] Bc Gonzalez MD [address] [place] [address] 4 02/10/2022 15:15:15 02/10/2022 16:01:05 Mixed anxiety and depressive disorder 076184598 F41.8 will start short course of temazepam with close follow up in clinic Depressive disorder 3548 9007 F33.9 [id number] Bc Gonzalez MD [address] [place] [address] 4 02/28/2022 15:32:27 02/28/2022 16:52:22 Mixed anxiety and depressive disorder 349187905 F41.8 Pt doing well with current regimen, continue same Insomnia 571785059 G47.0 1 [id number] Bc Gonzalez MD [address] [place] [address] 04/11/2022 16:45:00 04/11/2022 17:39:00 Insomnia 667884579 G47.01 Mixed anxi ety and depressive disorder 408448017 F41.8 Pt doing well with current regimen, continue same [id number] Bc Gonzalez MD [address] [place] [place] [address] 05/12/2022 16:48:07 05/12/2022 17:40:27 Insomnia 001105443 G47.01 will temporaril y increase dosing with closer follow up, Pt will now be seen x8lplew [id number] Bc Gonzalez MD [address] [place] [address] 05/30/2022 16:48:53 05/30/2022 17:19:01 Mixed anxiety and depressive disorder 228048151 F41.8 will d/c temazepam and start klonopin. Depressive disorder 3548 9007 F33.9 [id number] Bc Gonzalez MD [address] [place] [address] 06/17/2022 15:11:32 06/17/2022 16:34:15 Insomnia 149256415 G47.01 closer follow up, Pt will now be seen weekly Mixed anxi ety and depressive disorder 471460281 F41.8 closer follow up, Pt will now be seen weekly Anxiety 43872628 F41.9 Body mass index 20-24 - normal 729048301 Z68.24 Panic attack 675579265 F 41.0 closer follow up, Pt will now be seen weekly Depressive disorder 3548 9007 F33.9 [id number] Bc Gonzalez MD [address] [place] [address] 06/28/2022 13:44:41 06/28/2022 14:17:40 Insomnia 541142471 G47.01 closer follow up, Pt will now be seen weekly Mixed anxi ety and depressive disorder 074736212 F41.8 closer follow up, Pt will now be seen weekly Depressive disorder 3548 9007 F33.9 [id number] Bc Gonzalez MD [address] [place] [address] 04/18/2023 08:54:56 04/18/2023 09:57:36 Body mass index 20-24 - normal 829383342 Z68.24 Hyperglycemia 89987137 R 73.9 Pain of mu ltiple joints 47048499 M25.50 Pain in both feet 665746 9524 7014908 M79.671 M79.672 Mixed anxi ety and depressive disorder 479533397 F41.8 Pt doing quite well now, is no longer following with counseling [id number] Bc Gonzalez MD [address] [place] [address] 07/14/2023 10:34:42 07/14/2023 11:14:30 Viral screening 659950249 Z11.59 Nausea 796404016 R11.0 Fever 204157510 R50.9 [id number] Bc Gonzalez MD [address] [place] [address] 07/20/2023 08:02:16 07/20/2023 08:58:53 Mixed anxiety and depressive disorder 116836982 F41.8 Pt doing quite well now, is no longer following with counseling [id number] Bc Gonzalez MD [address] [place] [address] 09/15/2023 16:37:47 09/15/2023 17:21:42 Mixed anxiety and depressive disorder 732535370 F41.8 Pt doing very well until recently; states is maintainin g sobriety. Pt reports work issues are the greatest stressor at this time [id number] Ulises Clifton MD [address] [place] [address] 10/12/2023 13:39:24 10/12/2023 14:39:39 Increased frequency of urination 505531523 R35.0 Constipation 00077570 K5 9.00 Lower urin luis an[place]io tract infectious disease 0432793 N39.0 Chronic constipation 236 601849 K59.09 [id number] Bc Gonzalez MD [address] [place] [address] 04/18/2024 13:29:09 04/18/2024 14:47:59 Mixed anxiety and depressive disorder 821659390 F41.8 Long-term drug therapy 304090530 Z79.891 Dyspnea on exertion 6084 5006 R06.09 [id number] Bc Gonzalez MD [address] [place] [address] 05/02/2024 14:14:36 05/02/2024 15:43:49 Mixed anxiety and depressive disorder 723162433 F41.8 Insomnia 513519460 G47.0 1 closer follow up, Pt will now be seen weekly [id number] Bc Gonzalez MD [address] [place] [address] 05/13/2024 14:05:08 05/13/2024 14:52:41 Body mass index 20-24 - normal 832512703 Z68.22 Insomnia 816085146 G47.0 1 [id number] Bc Gonzalez MD [address] [place] [address] 05/24/2024 13:07:57 05/24/2024 13:58:47 Mixed anxiety and depressive disorder 540115448 F41.8 [id number] Bc Gonzalez MD [address] [place] [address] 06/07/2024 09:49:48 06/07/2024 10:48:40 Mixed anxiety and depressive disorder 032617241 F41.8 [id number] Bc Gonzalez MD [address] [place] [address] 4 06/20/2024 13:36:03 06/20/2024 14:11:42 Mixed anxiety and depressive disorder 529260624 F41.8 [id number] Bc Gonzalez MD [address] [place] [address] 4 07/12/2024 15:51:02 07/12/2024 16:26:47 Mixed anxiety and depressive disorder 034188043 F41.8 Insomnia 338459228 G47.0 1 [id number] SHERIDAN Lopez [facility] [address] [place] [address] 08/01/2024 10:39:27 08/01/2024 13:11:56 [id number] Enid Bee APRN [facility] [address] [place] [address] [place] [address] 08/06/2024 16:38:56 08/06/2024 17:31:15 Nicotine dependence 62313395 F17.200 Insomnia 304125778 G47.0 1 Mixed anxi ety and depressive disorder 614669524 F41.8 Chronic anxiety 88124870 9 F41.9 Long-term current use of drug therapy 848537656 Z79.575 [id number] Rashi Braga [employer] [facility] [address] [place] [address] 09/06/2024 14:06:03 09/06/2024 14:57:39 Health Concerns Section Related Observation LastModified by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
[2024-10-09 02:30] VITALS: BP 143/111; PULSE 109; RESP 20; O2SAT 100
--- NOTE | 2024-10-09 02:30 | XR_ITS ---
PROCEDURE INFORMATION: Exam: XR Chest Exam date and time: 10/09/2024 2:45 AM Age: 29 years old Clinical indication: Pain; Chest pressure; Additional info: Cp TECHNIQUE: Imaging protocol: Radiologic exam of the chest. Views: 1 view. COMPARISON: No relevant prior studies available. FINDINGS: Lungs: Unremarkable. No consolidation. Pleural spaces: Unremarkable. No pleural effusion. No pneumothorax. Heart/Mediastinum: Unremarkable. No cardiomegaly. Bones/joints: Unremarkable. IMPRESSION: No acute findings.
[2024-10-09 02:33] VITALS: BP 139/91; PULSE 128; RESP 24; O2SAT 100
[2024-10-09 02:37] VITALS: BP 139/91; PULSE 126; RESP 13; TEMP 36.7; O2SAT 97; BMI 20.2
[2024-10-09 02:37] LABS: Basophils # 0.1 K/mm3 (0-0.2); Basophils % 0.5 % (0.1-2.0); Hematocrit 36.8 % (37.0-47.0); Hemoglobin 12.8 g/dL (12.2-16.2); Immature Granulocytes # 0.03 10^3uL; Immature Granulocytes % 0.3 %; Lymphocytes # 2.3 K/mm3 (0.7-4.5); Mean Corpuscular HGB Conc 34.8 g/dL (31.8-35.4); Mean Corpuscular Hemoglobin 29.5 pg (27.0-31.2); Mean Corpuscular Volume 84.8 fl (81-99); Mean Platelet Volume 9.5 fl (7.4-10.4); Monocytes # 0.8 K/mm3 (0.1-1.0); Monocytes % 7.8 % (1.7-9.3); Neutrophils # 7.6 K/mm3 (1.8-7.8); Neutrophils % 70.4 % (37.0-80.0); Nucleated Red Blood Cells # 0 10^3/uL; Nucleated Red Blood Cells % 0 %; Platelet Count 431 K/mm3 (142-424); Red Blood Count 4.34 M/mm3 (4.20-5.40); Red Cell Distribution Width 13.6 % (11.5-17.5); Red Cell Distribution Width-SD 41.9 fL; White Blood Count 10.8 K/mm3 (4.8-10.8)
[2024-10-09] MEDS: 0.9 % SODIUM CHLORIDE 1000ML 1,000 ML 999 ML IV (02:38)
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
[2024-10-09 02:45] LABS: Alanine Aminotransferase 17 U/L (12-78); Albumin Level 5.3 g/dl (3.5-5.0); Albumin/Globulin Ratio 1.4 (1.1-1.8); Alkaline Phosphatase 103 U/L (38-126); Anion Gap 19.8 mEq/L (5-15); Aspartate Amino Transferase 26 U/L (14-36); Bilirubin,Total 1.2 mg/dl (0.2-1.3); Blood Urea Nitrogen 16 mg/dl (7-17); Calcium 10.3 mg/dl (8.4-10.2); Carbon Dioxide 20 mmol/L (22.0-30.0); Chloride 100 mmol/L (98-107); Estimated Glomerular Filt Rate 53 ml/min (>60); GFR (African American) 64 ML/MIN (>60); Globulin 3.9 g/dL (1.3-3.2); Glucose 123 mg/dl (74-100); Magnesium 1.8 mg/dl (1.6-2.3); Potassium 3.8 mmoL/L (3.5-5.1); Sodium 136 mmol/L (136-145); Total Protein,Serum 9.2 g/dl (6.3-8.2)
[2024-10-09 02:47] LABS: Creatinine Clearance Estimated 60 mL/min (50-200)
[2024-10-09 02:49] LABS: D-Dimer 0.42 ug/mL (0.0-0.5)
[2024-10-09 02:58] LABS: Troponin I < 0.01 ng/ml (0.00-0.034)
[2024-10-09 03:00] VITALS: BP 126/79; PULSE 116; RESP 13; O2SAT 100
[2024-10-09] MEDS: KETOROLAC 30MG/ML VIAL 30 MG IV (03:12)
[2024-10-09] MEDS: ACETAMINOPHEN 500MG TAB 1000 MG PO (03:12)
[2024-10-09 03:43] LABS: HIV Combo NEGATIVE (Negative)
[2024-10-09 03:51] LABS: Hepatitis C Ab Qual. W/ RFX NEGATIVE (Negative)
[2024-10-09 04:34] VITALS: BP 129/79; PULSE 116; RESP 13; TEMP 36.7; O2SAT 100
== END 2024-10-09 04:38 | disposition home or self-care (01) ==
PROVIDERS: Emergency Provider Emergency Medicine
DX: R06.02 Shortness of breath (principal); R00.0 Tachycardia, unspecified; F15.929 Other stimulant use, unspecified with intoxication, unspecified; R20.0 Anesthesia of skin; F41.9 Anxiety disorder, unspecified; Z11.59 Encounter for screening for other viral diseases; Z11.4 Encounter for screening for human immunodeficiency virus [HIV]
CPT/HCPCS: 71045; 80053; 80074; 83735; 84484; 85025; 85378; 87389; 93005; 96361; 96374; 99284; J1885; J7030

== ENCOUNTER 2024-12-03 03:16 | Emergency (ER) | payer OTHER, SELFPAY ==
[2024-12-03 03:23] VITALS: BP 130/89; PULSE 104; RESP 16; TEMP 36.7; O2SAT 98; BMI 21.9
--- NOTE | 2024-12-03 03:25 | ED_ITS ---
Discharge Plan Disposition Patient Disposition: Home, Self-Care Prescriptions Prescriptions: No Action hydroxyzine pamoate [Vistaril] 50 mg Capsule 50 mg PO BID vilazodone [Viibryd] 40 mg tablet 40 mg PO DAILY Qty: 20 0RF Rx Instructions: must administer with a meal/food Referrals Follow up/Referrals: Provider,Referral, [Primary Care Provider, Medical] - See instructions Activity Restrictions/Add. Instructions Additional Instructions/Restrictions: Please follow-up with your primary care provider. Please return to the emergency department if you develop any new or worsening symptoms or become concerned for your health. Clinical Impressions Clinical Impression: Chest wall pain, Left elbow pain Print Language Print Language: Yoruba Discharge ED Provider: Giorgi Onofre General Adult HPI General Chief complaint: Fall Stated complaint: Fall, L arm and rib pain Time Seen by Provider: 12/03/24 03:25 History of Present Illness HPI narrative: 29-year-old female without significant past medical history presents for left elbow pain and left rib soreness after a fall earlier today. She reports that they have a broken step on their porch and she fell, catching herself with her left elbow and her left side. She denies hitting her head or loss of consciousness. Reports her pain is in the left forearm/elbow where there is some bruising. She also ports that her ribs feel little sore but they are not hurting very bad. Related Data Home Medications ?Medication ?Instructions ?Recorded ?Confirmed hydroxyzine pamoate 50 mg capsule 50 mg PO BID 5 12/03/24 Previous Rx's ?Medication ?Instructions ?Recorded vilazodone 40 mg tablet (Viibryd) 40 mg PO DAILY #20 t abs 09/26/24 Allergies Allergy/AdvReac Type Severity Reaction Status Date / Time No Known Allergies Allergy Verified 08/23/18 11:09 [facility] Disclaimer: The information contained in this section may have been updated after the patient was seen, as this information can be updated by other users. Social History Smoking Status: Current some day smoker alcohol intake: never current occupational status: other Travel in the last 8 weeks?: None Have you lived/traveled outside [place] in past 30 days?: No Contact w/someone who lives/traveled outside US past 30 days?: No Exposure to someone with infectious disease in past 14 days?: No Do you have a fever (greater than 100.4 F or 38 C)?: No Have you tested positive for COVID-19?: No Exposed to someone with COVID-19 in past 14 days?: No Do you have a sore throat?: No Do you have a cough?: No Do you have any weakness?: No Do you have any diarrhea?: No Are you experiencing any unusual bleeding?: No Do you have any muscle aches/pain?: Yes Do you have any abdominal pain?: No Are you experiencing loss of taste or smell?: No Other Medical History Have you received the Flu Vaccine for this season: No Have you received the Pneumonia Vaccine: No ROS Obtained: Yes All systems reviewed & no additional complaints except as documented Physical Exam General General appearance: alert and in no apparent distress Head Head exam: atraumatic and normocephalic Eye Eye exam: Present normal appearance, PERRL and EOMI ENT ENT exam: Present normal oropharynx and normal external ear exam Neck Neck exam: Present normal inspection and full ROM Chest Chest inspection: Present normal inspection, symmetric chest wall rise and tenderness (Minimal, left chest wall) Respiratory Respiratory exam: Present normal lung sounds bilaterally; Absent respiratory distress Cardiovascular Cardiovascular exam: Present regular rate and normal rhythm Abdominal Exam Abdominal exam: Present soft; Absent distention, tenderness or guarding Extremities Exam Extremities exam: Present other (Significant bruising to the left ulnar forearm. No pain proximal to the humerus, no pain in the hand. Intact neurovascular exam.); Absent edema or joint swelling Back Exam Back exam: Present normal inspection; Absent tenderness Neurological Exam Neurological exam: Present alert and oriented X3; Absent motor sensory deficit Psychiatric Psychiatric exam: Present normal affect and normal mood Skin Skin exam: Present warm, dry and normal color Lymphatic Lymphatic Findings: no adenopathy Medical Decision Making Medical Records Medical records reviewed: Yes I reviewed the patient's medical records. Screening: Per USPSTF and CDC recommendations, given the prevalence of disease in our region, it is our hospital?s policy to screen for HIV and viral Hepatitis for all patients aged 18 and over and those with ongoing risk factors. Damien Inquiry Pt receiving controlled substance: No Damien was queried for this patient: No Vital Signs: 12/03/24 03:23 12/03/24 03:38 12/03/24 03:43 Temperature 98.0 F Temperature Source Oral Pulse Rate 102 H Pulse Rate [Right Radial] 104 H Respiratory Rate 16 Blood Pressure 110/73 Blood Pressure [Right Arm] 130/89 Blood Pressure Mean [Right Arm] 102 Blood Pressure Source Blood Pressure Position [Right Arm] Supine 02 Sat by Pulse Oximetry 98 96 100 Oxygen Delivery Method Room Air Room Air Nasal Cannula Room Air 12/03/24 04:20 Temperature 98.4 F Temperature Source Oral Pulse Rate 69 Pulse Rate [Right Radial] Respiratory Rate 16 Blood Pressure 110/63 Blood Pressure [Right Arm] Blood Pressure Mean [Right Arm] Blood Pressure Source Automatic Cuff Blood Pressure Position [Right Arm] 02 Sat by Pulse Oximetry Oxygen Delivery Method Room Air Lab Data Lab results reviewed: Yes I reviewed the patient's lab results. Orders (Tests/Meds): ED MEDICATIONS Discontinued Medications Generic Name Dose Route Start Last Admin Trade Name Malaika PRN Reason Stop Dose Admin Acetaminophen 1,000 mg 12/03/24 03:31 12/03/24 03:41 Acetaminophen 500mg Tab PO 12/03/24 03:32 1,000 mg ONCE ONE Administration Ketorolac Tromethamine 30 mg 12/03/24 03:31 12/03/24 03:41 Ketorolac 30mg/Ml Vial IM 12/03/24 03:32 30 mg ONCE ONE Administration ORDERS Category Date Time Status CXR --portable [XR chest portable] Stat Exams 12/03/24 03:31 Taken Elbow XR left mininum 3 views [XR elbow LT min 3V] Stat Exams 12/03/24 03:31 Completed Forearm XR left 2 views [XR forearm LT 2V] Stat Exams 12/03/24 03:31 Completed Medical Decision Narrative: 29-year-old female without significant past medical history presents for fall, left forearm/left rib pain. History was obtained via interactive discussion with patient, family. On arrival, patient is [afebrile, hemodynamically stable, satting appropriately, alert, oriented x4, GCS 15], moving all extremities spontaneously. Full physical exam performed and significant for bruising to the left forearm, mild tenderness of left chest wall Differential includes but is not limited to fracture, dislocation, pneumothorax, bruising. Patient was given Tylenol Toradol for symptomatic management and correction of underlying abnormalities. Workup initiated including radiographs of the left upper extremity and chest.. On re-evaluation, patient [remains afebrile, HD stable.] Imaging independently interpreted by me and significant for no obvious bony injury or pneumothorax.. See radiology read for full review of final results. Blood work and CT imaging was considered, but deemed unnecessary due to low mechanism of injury, isolated injury. Given patient history, exam and workup, patient's presentation most likely represents bruising to the left side after fall. Recommend she use ice, Tylenol, ibuprofen and follow-up as needed.. Procedures Risk/Benefits of Procedure(s) Were Explained: Yes Critical Care Critical Care Time Critical Care Time: No
--- NOTE | 2024-12-03 03:31 | XR_ITS ---
PROCEDURE INFORMATION: Exam: XR Left Elbow Exam date and time: 12/03/2024 3:54 AM Age: 29 years old Clinical indication: Pain; Elbow; Left; Additional info: Fall, elbow pain TECHNIQUE: Imaging protocol: Radiologic exam of the left elbow. Views: 3 or more views. COMPARISON: No relevant prior studies available. FINDINGS: Bones/joints: No acute fracture. No dislocation. No significant joint effusion. Soft tissues: Unremarkable. IMPRESSION: No fracture.
--- NOTE | 2024-12-03 03:31 | XR_ITS ---
PROCEDURE INFORMATION: Exam: XR Left Forearm Exam date and time: 12/03/2024 3:54 AM Age: 29 years old Clinical indication: Pain; Lower or forearm; Left; Additional info: Fall, forearm pain TECHNIQUE: Imaging protocol: Radiologic exam of the left forearm. Views: 2 views. COMPARISON: No relevant prior studies available. FINDINGS: Bones/joints: No acute fracture. No dislocation. Soft tissues: Unremarkable. IMPRESSION: No fracture.
--- NOTE | 2024-12-03 03:31 | XR_ITS ---
PROCEDURE INFORMATION: Exam: XR Chest Exam date and time: 12/03/2024 3:54 AM Age: 29 years old Clinical indication: Pain; Additional info: Fall TECHNIQUE: Imaging protocol: Radiologic exam of the chest. Views: 1 view. COMPARISON: CR XR CHEST PORTABLE 10/09/2024 2:45 AM FINDINGS: Lungs: No consolidation. Probable tiny calcified granuloma. Pleural spaces: No significant pleural effusion. No pneumothorax. Heart/Mediastinum: No cardiomegaly. Bones/joints: No displaced fracture. Soft tissues: Unremarkable. IMPRESSION: No definite acute cardiopulmonary disease.
--- OUTSIDE RECORDS SUMMARY | 2024-12-03 03:32 | XMS_ITS | Clinical Summary ---
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 (ICD-10-CM ) 08/20 Active 08/20 Sabrina Sharma MD Encounter for surveillance of contraceptive s, unspecified DYSURIA 68140302 (SNOMED CT) 08/20 Active 08/20 Natali Washington MA Dysuria ROUTINE FOLLOW-UP 818456382 (SNOMED CT) 07/25 Inactive 07/25 Georgette Mujica LPN visit Medications Medication Instructions Start Date Stop Date Generic Name [facility] Provider SPRINTEC 28 0.25-35 MG-MCG TABS Take 1 daily NORGESTIMATE-E TH ESTRADIOL [id number] Sabrina Sharma MD BACTRIM DS 800-160 MG TABS one po BID SULFAMETHOXAZO LE-TRIMETHOPRI M [id number] Sabrina Sharma MD Medications Administered No information available. Allergies, Adverse Reactions, Alerts Allergy Name Reaction Description Start Date Severity Statu s Provider PRILOSEC Critical Active Georgette Cross urrens STAFF TOXICOLOGIST CECLOR Critical Active Georgette C urrens STAFF TOXICOLOGIST AMOXIL Critical Active Georgette Cross urrens STAFF TOXICOLOGIST Results Date Name Value Unit Range Flag Description Office Visit: [facility]-/deliv ered 07/08/2012-[facility]- RM# 3 WET MOUNT Negative microbial wet [...] Chly (Out O rder) Pending order Hemoglobin [id number] Pending order Urine Dip Auto 8 1003 Pending order Slides - Smears 54063 Pending order Pap Age age =< 2 0 (Out Order) Pending Order exclud ed from report: Procedures Code Procedure Name Date Entry Date CPT-31449 Hemoglobin 69297 CPT-44964 Urine Dip Auto 15769 CPT-31660 Slides - Smears [id number] 08/20 CPT-41840 [facility] Chly (Out Order) 08/20 91136 [facility] Test # Pap Age age =< [...]
--- OUTSIDE RECORDS SUMMARY | 2024-12-03 03:33 | XMS_ITS | Clinical Summary ---
Author Organization [facility] Address [address] [facility] [place] [address] Phone Care Team Providers Care Fisher Sponge Hooking Name Role Phone Unavailable Primary Care Provider [...] season) 2023 HPV/Pap Cotest 2024 Influenza Vaccine (#1) 2024 Meningococcal B Vaccine Aged Out No l onger eligible based on patient's age to complete this topic Pneumococcal Vaccine 0-49 Aged Out No longer eligible based on patient's age to complete [place] [address] Advance Directives For more information, please contact: [phone] * Full Code (Latest Code Status on File) Date Activated Date Inactivated Comments 07/11/2012 7:54 AM 07/12/2012 2:37 PM
--- OUTSIDE RECORDS SUMMARY | 2024-12-03 03:33 | XMS_ITS | Clinical Summary ---
Author Organization Healthcare Address [address] [place] [address] Care Team Providers Care Associate Name Role Phone Unavailable Primary Care Provider [...]
[2024-12-03 03:38] VITALS: O2SAT 96
[2024-12-03] MEDS: KETOROLAC 30MG/ML VIAL 30 MG IM (03:41)
[2024-12-03] MEDS: ACETAMINOPHEN 500MG TAB 1000 MG PO (03:41)
[2024-12-03 03:43] VITALS: BP 110/73; PULSE 102; O2SAT 100
[2024-12-03 04:20] VITALS: BP 110/63; PULSE 69; RESP 16; TEMP 36.9; O2SAT 100
== END 2024-12-03 04:21 | disposition home or self-care (01) ==
PROVIDERS: Emergency Provider Emergency Medicine
DX: R07.89 Other chest pain (principal); M25.522 Pain in left elbow; W10.8XXA Fall (on) (from) other stairs and steps, initial encounter
CPT/HCPCS: 71045; 73080; 73090; 96374; 99284; J1885